=== PATIENT | male | born 1980 | race Caucasian/White ===

== ENCOUNTER → 2017-03-11 | Outpatient (CLI) | payer OTHER ==
[~2017-03-11] MED LIST: AMIT25TA PO; COMBAER6 INH; LOSA100T36 PO; SIMV40TA2 PO; TRAM50TA2 PO; VITA200028 PO
[2017-03-11 11:50] LABS: BASO # 0.1 K/mm3 (0.0-0.2); BASO % 0.7 % (0.0-1.0); EOS # 0.4 K/mm3 (0.0-0.50); EOS % 4.4 % (0.0-3.0); LYMPH # 3.1 K/mm3 (1.5-4.5); LYMPH % 28.2 % (24.0-44.0); MEAN CORPUSCULAR HGB CONC 33.3 g/dl (32.0-36.5); MONO # 0.6 K/mm3 (0.0-0.8); NEUTROPHILS # 6.2 K/mm3 (1.8-7.7); NEUTROPHILS % 59.4 % (36.0-66.0); RED CELL DISTRIBUTION WIDTH 12.7 % (11.5-14.5); WHITE BLOOD COUNT 10.4 K/mm3 (4.0-10.0)
[2017-03-11 12:21] LABS: ALBUMIN 3.5 GM/DL (3.2-5.2); ALKALINE PHOSPHATASE 101 U/L (45-117); ALT/SGPT 40 U/L (12-78); ANION GAP 8 MEQ/L (8-16); AST/SGOT 29 U/L (15-37); BILIRUBIN,TOTAL 0.2 MG/DL (0.2-1.0); BLOOD UREA NITROGEN 7 MG/DL (7-18); CALCIUM LEVEL 8.7 MG/DL (8.5-10.1); CARBON DIOXIDE LEVEL 27 MEQ/L (21-32); CHLORIDE LEVEL 106 MEQ/L (98-107); CHOLESTEROL LEVEL 235 MG/DL (<200); CREATININE FOR GFR 0.77 MG/DL (0.70-1.30); FREE T4 0.97 NG/DL (0.76-1.46); GLOMERULAR FILTRATION RATE > 60.0 (>60); GLUCOSE, FASTING 96 MG/DL (70-105); POTASSIUM SERUM 4.4 MEQ/L (3.5-5.1); SODIUM LEVEL 141 MEQ/L (136-145); TOTAL PROTEIN 7.9 GM/DL (6.4-8.2); TRIGLYCERIDES LEVEL 172 MG/DL (<150)
== END ==
LOC: M LAB 11:21
PROVIDERS: ATTEND Nurse Practitioner Adult Health
DX: E78.00 Pure hypercholesterolemia, unspecified (principal); Z79.899 Other long term (current) drug therapy; E55.9 Vitamin D deficiency, unspecified; R74.8 Abnormal levels of other serum enzymes

== ENCOUNTER → 2017-10-06 | Outpatient (REF) | payer OTHER | LOC: M LAB REF 12:57 | PROVIDERS: ATTEND Nurse Practitioner Family | DX: S41.101A Unspecified open wound of right upper arm, initial encounter (principal); X58.XXXA Exposure to other specified factors, initial encounter; Y93.9 Activity, unspecified; Y92.9 Unspecified place or not applicable; Y99.8 Other external cause status ==

== ENCOUNTER → 2018-12-12 | Outpatient (REF) | payer OTHER ==
[~2018-12-12] MED LIST changes: -LOSA100T36 PO; +LOSA100T50 PO
[2018-12-12 20:21] LABS: ALBUMIN 3.3 GM/DL (3.2-5.2); ALT/SGPT 39 U/L (12-78); BILIRUBIN,TOTAL 0.5 MG/DL (0.2-1.0); BLOOD UREA NITROGEN 8 MG/DL (7-18); CALCIUM LEVEL 8.9 MG/DL (8.5-10.1); CARBON DIOXIDE LEVEL 25 MEQ/L (21-32); CHLORIDE LEVEL 103 MEQ/L (98-107); CHOLESTEROL LEVEL 213 MG/DL (<200); CHOLESTEROL RISK RATIO 7.344 (<5); CREATININE FOR GFR 0.93 MG/DL (0.70-1.30); GLOMERULAR FILTRATION RATE > 60.0 (>60); GLUCOSE, FASTING 92 MG/DL (70-100); HDL CHOLESTEROL 29 MG/DL (>40); LDL CHOLESTEROL 154 MG/DL (<100); NON-HDL-C 184 MG/DL; POTASSIUM SERUM 4.5 MEQ/L (3.5-5.1); SODIUM LEVEL 136 MEQ/L (136-145); TOTAL PROTEIN 7.4 GM/DL (6.4-8.2); TRIGLYCERIDES LEVEL 149 MG/DL (<150)
== END ==
LOC: M LAB REF 18:26
PROVIDERS: ATTEND Family Medicine Addiction Medicine
DX: I10 Essential (primary) hypertension (principal)

== ENCOUNTER → 2019-06-23 | Outpatient (CLI) | payer OTHER ==
[~2019-06-23] MED LIST changes: +PROHANCE 279.3MG/ML 15ML VIAL (A9576) As Ordered ONE; +PROHANCE 279.3MG/ML 5ML VIAL (A9576) As Ordered ONE
--- NOTE | 2019-06-23 15:21 | REP ---
MRI CERVICAL SPINE WITHOUT AND WITH IV CONTRAST: HISTORY: Neck pain. Comparison cervical spine MRI study is from February 10, 2016. There is also a comparison MRI study from May 22, 2014. These prior study showed a elongate abnormal T2 signal intensity in the dorsal aspect of the cervical spinal cord. TECHNIQUE: Sagittal and axial T1 and T2-weighted scans are acquired in the usual fashion with and without fat saturation. Sequences include spin echo, turbo spin-echo, and STIR imaging sequences. The gadolinium enhancement dose is 20 mL of intravenous ProHance. MRI FINDINGS: There is straightening of the normal cervical lordosis. Cortical and medullary bone signal intensity are essentially normal. There are some reactive marrow changes associated with a degenerated C6-7 disc. There are degenerative disc changes at C4-5 and C5-6 as well. There is disc bulging centrally at C6-7 and diffusely at C5-6 and C4-5. There is uncovertebral spurring on the right at C4-5 and C5-6 and to a lesser extent C6-7. On the left there is uncovertebral spurring on the C6-7 and C4-5. These degenerative changes are similar to but slightly more pronounced than the 2014 prior study. Cervical cord is normal in course and caliber. Abnormal signal intensity persists in an elongate lesion in the dorsal cervical cord extending from mid C3 through the lower C-7 level. This appears to be unchanged in extent. It is better seen given differences in MRI instrumentation in the interval since the 2013 prior study. Axial images with T2-weighted demonstrate maximum transverse diameter of this elongate dorsal intramedullary lesion to be 3 x 4 mm. There is no abnormal intramedullary contrast enhancement. No other abnormal contrast enhancement is seen. On STIR and turbo spin echo T2-weighted scans there is a suggestion of ill-defined increased signal intensity in the upper thoracic cord at the level of the T2 vertebral body. Consider thoracic spine MRI study. IMPRESSION: There are degenerative spondylosis changes again noted and C4-5, C5-6 and C6-7 generally more pronounced than on the 2014 study. There is an elongate dorsal intramedullary T2 hyperintense lesion in the spinal cord extending from C3 through C7 as on previous studies. Differential possibilities include sarcoidosis, vasculitis, B12 deficiency, transverse myelitis, or atypical demyelinating disease. No abnormal contrast enhancement is seen. Question upper thoracic intramedullary signal intensity abnormality as well. Consider MRI thoracic spine. Electronically Signed by Christopher Ramirez MD 06/23/2019 03:50 P
== END ==
LOC: M RAD 13:03
PROVIDERS: ATTEND Family Medicine Addiction Medicine
DX: M54.2 Cervicalgia (principal); M47.812 Spondylosis without myelopathy or radiculopathy, cervical region
CPT/HCPCS: 72156; A9576

== ENCOUNTER → 2019-09-11 | Outpatient (REF) | payer OTHER ==
[~2019-09-11] MED LIST changes: -PROHANCE 279.3MG/ML 15ML VIAL (A9576) As Ordered ONE; -PROHANCE 279.3MG/ML 5ML VIAL (A9576) As Ordered ONE
[2019-09-11 16:12] LABS: BASO # 0.1 10^3/uL (0.0-0.2); BASO % 0.5 % (0.0-1.0); EOS # 0.4 10^3/uL (0.0-0.5); EOS % 2.4 % (0.0-3.0); HEMATOCRIT 45.3 % (42.0-52.0); HEMOGLOBIN 15.2 g/dl (13.5-17.5); LYMPH # 3.1 10^3/uL (1.5-5.0); LYMPH % 21.3 % (24.0-44.0); MEAN CORPUSCULAR HEMOGLOBIN 31.9 pg (27.0-33.0); MEAN CORPUSCULAR HGB CONC 33.6 g/dl (32.0-36.5); MONO # 1.4 10^3/uL (0.0-0.8); MONO % 9.6 % (0.0-5.0); NEUTROPHILS # 9.6 10^3/uL (1.5-8.5); NEUTROPHILS % 65.9 % (36.0-66.0); PLATELET COUNT, AUTOMATED 400 10^3/uL (150-450); RED BLOOD COUNT 4.77 10^6/uL (4.30-6.10); WHITE BLOOD COUNT 14.6 10^3/uL (4.0-10.0)
[2019-09-11 16:33] LABS: HEMOGLOBIN A1c 5.8 %
[2019-09-11 17:06] LABS: ALBUMIN 3.4 GM/DL (3.2-5.2); ALT/SGPT 42 U/L (12-78); BILIRUBIN,TOTAL 0.3 MG/DL (0.2-1.0); BLOOD UREA NITROGEN 8 MG/DL (7-18); CALCIUM LEVEL 9.2 MG/DL (8.5-10.1); CARBON DIOXIDE LEVEL 26 MEQ/L (21-32); CHLORIDE LEVEL 103 MEQ/L (98-107); CHOLESTEROL LEVEL 157 MG/DL (<200); CHOLESTEROL RISK RATIO 5.233 (<5); CREATININE FOR GFR 0.91 MG/DL (0.70-1.30); FREE T4 1.07 NG/DL (0.76-1.46); GLOMERULAR FILTRATION RATE > 60.0 (>60); GLUCOSE, FASTING 122 MG/DL (70-100); HDL CHOLESTEROL 30 MG/DL (>40); LDL CHOLESTEROL 107 MG/DL (<100); NON-HDL-C 127 MG/DL; POTASSIUM SERUM 4.5 MEQ/L (3.5-5.1); SODIUM LEVEL 136 MEQ/L (136-145); THYROID STIMULATING HORMONE 0.908 uIU/ML (0.358-3.740); TOTAL 25(OH) VITAMIN D 17.5 NG/ML (30.0-100.0); TOTAL PROTEIN 7.5 GM/DL (6.4-8.2); TRIGLYCERIDES LEVEL 100 MG/DL (<150)
== END ==
LOC: M LAB REF 14:30
PROVIDERS: ATTEND Family Medicine
DX: Z13.228 Encounter for screening for other metabolic disorders (principal)

== ENCOUNTER → 2019-09-21 | Outpatient (CLI) | payer OTHER ==
--- NOTE | 2019-09-21 09:19 | REP ---
Clinical: Abdominal pain. Technique: Real time treviño scale ultrasound examination using curved array transducer. Findings: Liver, spleen, and visualized pancreas are normal in contour, size, echogenicity without focal hepatic, splenic or pancreatic lesion identified. The gallbladder is normal and without gallstones, wall thickening, or pericholecystic fluid. No biliary ductal dilatation is appreciated and the common bile duct measures 5 mm diameter. The bilateral kidneys are normal in reniform shape without hydronephrosis. Right kidney measures 12.8 x 6.3 x 5.4 cm. Left kidney measures 13.1 x 5.0 x 6.0 cm. Abdominal aorta measures 2.0 cm maximal diameter. No ascites. Impression: Normal complete abdominal ultrasound. Electronically Signed by Conner Castellanos MD 09/21/2019 09:11 A
== END ==
LOC: M RAD 08:22
PROVIDERS: ATTEND Family Medicine
DX: R10.9 Unspecified abdominal pain (principal)

== ENCOUNTER → 2019-10-12 | Outpatient (CLI) | payer OTHER ==
--- NOTE | 2019-10-12 09:42 | REP ---
Two-view chest: 10/12/2019. Indication: Cough. Bronchitis. Comparison: 11/21/2005. Findings: The lungs are clear. There is no pleural effusion or pneumothorax. The cardiomediastinal silhouette is unremarkable. Impression: No acute cardiopulmonary process. Electronically Signed by Chetan Yun DO 10/12/2019 09:33 A
--- NOTE | 2019-10-12 12:29 | REP ---
HIDA SCAN WITH GALLBLADDER EJECTION FRACTION: Following the intravenous administration of 6.6 mCi of technetium-99m mebrofenin, images of the right upper quadrant are performed for a period of 1 hour. Gallbladder is visualized at 25 minutes post injection. There is biliary to bowel transit at 10 minutes postinjection. There is no scintigraphic evidence of cholecystitis. At the 1 hour marshal 8 ounces of Ensure Enlive is ingested and further imaging performed for 1 hour. Gallbladder ejection fraction is calculated to be 92% which is normal. IMPRESSION: Normal gallbladder ejection fraction. Electronically Signed by Jamie Hathaway MD 10/12/2019 01:03 P
== END ==
LOC: M RAD 08:44
PROVIDERS: ATTEND Family Medicine
DX: R10.9 Unspecified abdominal pain (principal)
CPT/HCPCS: 71046; 78227; A9537; J2805

== ENCOUNTER → 2019-12-19 | Outpatient (CLI) | payer OTHER ==
[~2019-12-19] MED LIST changes: -SIMV40TA2 PO; +SIMV40TA20 PO
--- NOTE | 2019-12-20 06:08 | REP ---
Clinical: Chronic bronchitis. Technique: Axial noncontrast images from the thoracic inlet to the upper abdomen with coronal and sagittal re-formations. Comparison: None. Findings: The bilateral lung mayes are well-aerated and relatively clear/symmetric. Very subtle peribronchial thickening/bronchiectasis cannot be excluded and should be correlated with symptomatology. No consolidation. No effusion. No pneumothorax. No obvious adenopathy. Mediastinum demonstrates normal thoracic aorta, pulmonary vasculature and heart/pericardium. Atherosclerotic changes to the coronary arteries noted. Osseous structures are intact and normal. Impression: Suggestions for very mild peribronchial thickening / bronchiectasis. Correlation with symptomatology recommended. No acute consolidation or effusion. Electronically Signed by Conner Castellanos MD 12/20/2019 06:00 A
== END ==
LOC: M RAD 17:15
PROVIDERS: ATTEND Family Medicine
DX: J42 Unspecified chronic bronchitis (principal)

== ENCOUNTER 2020-05-20 17:42 | Emergency (ER) | payer MEDICAID, OTHER ==
[~2020-05-20] VITALS: Ht 175.3 cm; Wt 104.8 kg
[2020-05-20] MEDS ORDERED: LOPR1TAB6 PO (17:55)
[2020-05-20] MEDS ORDERED: NS 1,000 ML IV ONE (18:30)
[2020-05-20] MEDS ORDERED: diazePAM 10MG/2ML SYRINGE (J3360 PER 5MG) IV ONE (18:30)
[2020-05-20 19:19] LABS: BASO # 0.1 10^3/uL (0.0-0.2); BASO % 0.6 % (0.0-1.0); EOS # 0.2 10^3/uL (0.0-0.5); EOS % 1.6 % (0.0-3.0); HEMATOCRIT 46.2 % (42.0-52.0); HEMOGLOBIN 15.7 g/dl (13.5-17.5); LYMPH # 3.1 10^3/uL (1.5-5.0); LYMPH % 22.3 % (24.0-44.0); MEAN CORPUSCULAR VOLUME 94.1 fl (80.0-96.0); MONO # 1.2 10^3/uL (0.0-0.8); MONO % 8.3 % (0.0-5.0); NEUTROPHILS # 9.3 10^3/uL (1.5-8.5); NEUTROPHILS % 66.9 % (36.0-66.0); PLATELET COUNT, AUTOMATED 315 10^3/uL (150-450); RED BLOOD COUNT 4.91 10^6/uL (4.30-6.10); WHITE BLOOD COUNT 13.9 10^3/uL (4.0-10.0)
--- NOTE | 2020-05-20 19:22 | REP ---
Clinical: Right-sided chest and back pain . Comparison: 10/12/2019 . Findings: The mediastinum and cardiac silhouette are stable and within normal limits for portable technique. The lung mayes are clear without acute consolidation, effusion, or pneumothorax. Skeletal structures are intact. Impression: No acute cardiopulmonary process appreciated. Electronically Signed by Conner Castellanos MD 05/20/2020 07:14 P
[2020-05-20 19:23] LABS: INR 0.97; PARTIAL THROMBOPLASTIN TIME 27.5 SECONDS (25.0-38.4); PROTHROMBIN TIME 12.6 SECONDS (11.8-14.0)
[2020-05-20 19:26] LABS: D-DIMER QUANT 282.24 ng/ml (<500)
[2020-05-20 19:56] LABS: ALBUMIN 3.7 GM/DL (3.2-5.2); ALT/SGPT 103 U/L (12-78); BILIRUBIN,DIRECT 0.1 MG/DL (0.0-0.2); BILIRUBIN,TOTAL 0.5 MG/DL (0.2-1.0); BLOOD UREA NITROGEN 10 MG/DL (7-18); CALCIUM LEVEL 9.6 MG/DL (8.5-10.1); CARBON DIOXIDE LEVEL 24 MEQ/L (21-32); CHLORIDE LEVEL 103 MEQ/L (98-107); GLOMERULAR FILTRATION RATE > 60.0 (>60); GLUCOSE, FASTING 87 MG/DL (70-100); LIPASE 209 U/L (73-393); POTASSIUM SERUM 4.5 MEQ/L (3.5-5.1); SODIUM LEVEL 135 MEQ/L (136-145); TOTAL PROTEIN 8.1 GM/DL (6.4-8.2)
--- NOTE | 2020-05-20 21:53 | REPVR ---
PROCEDURE INFORMATION: Exam: CT Abdomen And Pelvis Without Contrast Exam date and time: 05/20/2020 9:19 PM Age: 40 years old Clinical indication: Abdominal pain; Flank; Right; Additional info: R flank pain TECHNIQUE: Imaging protocol: Computed tomography of the abdomen and pelvis without contrast. Radiation optimization: All CT scans at this facility use at least one of these dose optimization techniques: automated exposure control; mA and/or kV adjustment per patient size (includes targeted exams where dose is matched to clinical indication); or iterative reconstruction. COMPARISON: CR Pelvis, complete 11/29/2013 2:53 PM FINDINGS: Liver: There is hypodense fatty infiltration of the liver. Hepatomegaly. Gallbladder and bile ducts: No calcified stones. No ductal dilation. Pancreas: A small focus of gas is identified in the region of the pancreatic head and medial to the duodenum. This is suggestive of a duodenal diverticulum or gas within the pancreatic duct. Small calcifications are identified within the the pancreatic tail, which can be associated with chronic pancreatitis. No acute peripancreatic stranding is identified. Spleen: Unremarkable as visualized on these noncontrast images. No splenomegaly. Adrenals: A hypodense right adrenal nodule is visualized measuring 1.8 x 1.2 cm. This has a density of-12.4 HU, suggestive of adrenal adenoma. Kidneys and ureters: Small the nonobstructing renal calculi are identified bilaterally. There is no hydronephrosis bilaterally. No obstructive calculi are identified within the ureters bilaterally. Stomach and bowel: Evaluation of bowel is limited by the absence of oral contrast. No bowel obstruction Appendix: No evidence of appendicitis. Intraperitoneal space: No free air. Vasculature: There is atherosclerotic calcification of the abdominal aorta and iliac arteries. Lymph nodes: No enlarged lymph nodes. Bladder: Mild nonspecific wall thickening of the bladder. Reproductive: Unremarkable as visualized. Bones/joints: Degenerative changes are visualized within the lower thoracic spine. Disc bulging visualized within the lumbar spine. Soft tissues: Minimal herniation of fat into the umbilicus. IMPRESSION: 1. There is fatty infiltration of the liver. Hepatomegaly. 2. A hypodense right adrenal nodule is visualized measuring 1.8 x 1.2 cm, suggestive of adrenal adenoma. 3. Small the nonobstructing renal calculi are identified bilaterally. There is no hydronephrosis bilaterally. No obstructive calculi are identified within the ureters bilaterally. 4. Mild nonspecific wall thickening of the bladder. Correlation with urinalysis recommended. 5. Additional findings described above. Electronically signed by: Bert Seals On 05/20/2020 21:52:56 PM
[2020-05-20 22:23] VITALS: BP 189/106
[2020-05-20] MEDS ORDERED: ROBA750T4 PO (22:41)
[2020-05-20] MEDS ORDERED: FLOM0.4C39 PO (22:41)
== END 2020-05-20 22:52 | disposition home or self-care (01) ==
LOC: M ED 17:42
DX: M51.36 Other intervertebral disc degeneration, lumbar region (principal); N20.0 Calculus of kidney; R16.2 Hepatomegaly with splenomegaly, not elsewhere classified; D35.00 Benign neoplasm of unspecified adrenal gland; M62.830 Muscle spasm of back; R05 Cough; I10 Essential (primary) hypertension; J45.909 Unspecified asthma, uncomplicated; J44.9 Chronic obstructive pulmonary disease, unspecified; F17.210 Nicotine dependence, cigarettes, uncomplicated; Z79.899 Other long term (current) drug therapy
CPT/HCPCS: 36415; 71045; 74176; 80048; 80076; 81001; 83690; 85025; 85379; 85610; 85730; 87088; 87186; 87486; 87581; 87633; 87798; 96361; 96374; 99284; J3360

== ENCOUNTER → 2020-09-13 | Outpatient (REF) | payer OTHER, MEDICAID ==
[~2020-09-13] MED LIST changes: +FLOM0.4C39 PO; +LOPR1TAB6 PO; +ROBA750T4 PO
[2020-09-13 17:02] LABS: ALBUMIN 3.3 GM/DL (3.2-5.2); ALT/SGPT 103 U/L (12-78); BILIRUBIN,TOTAL 0.4 MG/DL (0.2-1.0); BLOOD UREA NITROGEN 7 MG/DL (7-18); CALCIUM LEVEL 8.6 MG/DL (8.5-10.1); CARBON DIOXIDE LEVEL 26 MEQ/L (21-32); CHLORIDE LEVEL 103 MEQ/L (98-107); CHOLESTEROL LEVEL 162 MG/DL (<200); CHOLESTEROL RISK RATIO 3.115 (<5); CREATININE FOR GFR 0.75 MG/DL (0.70-1.30); GLOMERULAR FILTRATION RATE > 60.0 (>60); GLUCOSE, FASTING 94 MG/DL (70-100); HDL CHOLESTEROL 52 MG/DL (>40); LDL CHOLESTEROL 70 MG/DL (<100); NON-HDL-C 110 MG/DL; POTASSIUM SERUM 4.2 MEQ/L (3.5-5.1); SODIUM LEVEL 137 MEQ/L (136-145); THYROID STIMULATING HORMONE 0.823 uIU/ML (0.358-3.740); TOTAL PROTEIN 7.5 GM/DL (6.4-8.2); TRIGLYCERIDES LEVEL 199 MG/DL (<150)
== END ==
LOC: M LAB REF 16:31
PROVIDERS: ATTEND Family Medicine Addiction Medicine
DX: I10 Essential (primary) hypertension (principal)

== ENCOUNTER → 2021-01-21 | Outpatient (CLI) | payer OTHER ==
[~2021-01-21] MED LIST changes: -AMIT25TA PO; +AMIT25TA17 PO; +DOXY100C37 PO; +FLUTISP; +HYDR-3713 PO; +METO1TAB32 PO
--- NOTE | 2021-01-21 16:52 | REPVR ---
PROCEDURE INFORMATION: Exam: CT Maxillofacial Without Contrast Exam date and time: 01/21/2021 4:32 PM Age: 40 years old Clinical indication: Other: Polyp; Additional info: Nasal polyp TECHNIQUE: Imaging protocol: Computed tomography images of the face without contrast. Radiation optimization: All CT scans at this facility use at least one of these dose optimization techniques: automated exposure control; mA and/or kV adjustment per patient size (includes targeted exams where dose is matched to clinical indication); or iterative reconstruction. COMPARISON: No relevant prior studies available. FINDINGS: Orbital cavity: Orbits are normal. Globes are unremarkable. Bones/joints: No acute fracture. Paranasal sinuses: Near complete opacification of frontal and ethmoid sinuses. Moderate mucosal thickening of the maxillary and sphenoid sinuses. Mastoid air cells: Near complete opacification of right mastoid air cells and right middle ear cavity. Soft tissues: Scattered round cystic appearing subdural lesions throughout the bilateral face soft tissues, largest lesion in the right periauricular region measuring 2 cm. IMPRESSION: 1. Near complete opacification of frontal and ethmoid sinuses. Moderate mucosal thickening of the maxillary and sphenoid sinuses. Findings suggestive of acute on chronic sinusitis. Recommend ENT consultation. 2. Near complete opacification of right mastoid air cells and right middle ear cavity. Correlate clinically for signs/symptoms of right otomastoiditis. 3. Scattered round cystic appearing subdural lesions throughout the bilateral face soft tissues, largest lesion in the right periauricular region measuring 2 cm. Recommend dermatology consultation. Electronically signed by: Jhoan Vick On 01/21/2021 16:53:15 PM
== END ==
LOC: M RAD 16:13
PROVIDERS: ATTEND Otolaryngology
DX: J33.9 Nasal polyp, unspecified (principal)

== ENCOUNTER → 2021-02-01 | Outpatient (CLI) | payer OTHER | LOC: M LABSMTC 10:19 | PROVIDERS: ATTEND Anesthesiology | DX: Z01.812 Encounter for preprocedural laboratory examination (principal); Z20.822 Contact with and (suspected) exposure to COVID-19 ==

== ENCOUNTER 2021-02-06 13:15 | Day surgery (SDC) | payer OTHER ==
[~2021-02-06] VITALS: Ht 176.5 cm; Wt 103.0 kg
[~2021-02-06 13:15] MED LIST changes: +LIDOCAINE 1% MDV 20ML VIAL SQ PRN; +LR 1,000 ML IV ONE; +dexameTHASONE 4 MG/ML 1ML VIAL (J1100 PER 1MG) IV ONE
[2021-02-06] MEDS ORDERED: ONDANSETRON 4MG/2ML VIAL As Ordered ONE (15:56)
[2021-02-06] MEDS ORDERED: propofoL 200 MG/20 ML VIAL As Ordered ONE (15:56)
[2021-02-06] MEDS ORDERED: MIDAZOLAM INJ 2MG/2ML VIAL (J2250 PER 1MG) As Ordered ONE (15:56)
[2021-02-06] MEDS ORDERED: METOCLOPRAMIDE INJ 10MG/2ML VIAL (J2765 PER 1) As Ordered ONE (15:56)
[2021-02-06] MEDS ORDERED: LIDOCAINE 2% 100MG/5ML SDV (FOR ANES.) As Ordered ONE (15:56)
[2021-02-06] MEDS ORDERED: fentaNYL 100 MCG/2 ML INJECTION (J3010) As Ordered ONE ×2 (15:57→17:07)
[2021-02-06] MEDS ORDERED: PHENYLEPHRINE 0.5% NASAL SPRAY 15 ML As Ordered ONE (16:00)
[2021-02-06] MEDS ORDERED: CIPRODEX OTIC SUSP 7.5ML As Ordered ONE (16:00)
[2021-02-06 17:20] VITALS: BP 140/88
[2021-02-06] MEDS ORDERED: fentaNYL 100 MCG/2 ML INJECTION (J3010) IV PRN (17:30)
[2021-02-06] MEDS ORDERED: oxyCODONE 5MG TAB PO PRN (17:30)
[2021-02-06] MEDS ORDERED: ONDANSETRON 4MG/2ML VIAL IV PRN (17:30)
[2021-02-06] MEDS ORDERED: LR 1,000 ML IV SCH (17:30)
--- NOTE | 2021-02-11 12:58 | RO ---
OPERATIVE NOTE DATE OF OPERATION: 02/06/2021 PREOPERATIVE DIAGNOSIS: Right serous otitis media. POSTOPERATIVE DIAGNOSIS: Right serous otitis media. PROCEDURE PERFORMED: Right tympanostomy. SURGEON: Oc Cee MD. CAN CONVEYOR FEEDER: ANESTHESIA: General. CLINICAL PREAMBLE: This 40-year-old man presented to the office with a history of right chronic serous otitis media. Resolution was achievable with medical management over three months. Management options, including right tympanostomy, have been discussed. Patient understood and consented to the procedure. DESCRIPTION OF PROCEDURE: Patient was identified in preoperative holding and had the right ear marked. He was brought to the operating room in stable condition. In supine position on the operating table, patient received general anesthesia followed by mask ventilation. Patient head was turned to the left side exposing the right ear. Ear speculum was inserted, and cerumen was debrided under binocular magnification using the Zeiss microscope. The right tympanic membrane was visualized and found to be intact. Effusion was noted in the right middle ear cleft. A myringotomy incision was made over the anterior-inferior quadrant of the tympanic membrane. The right middle ear cleft was then suctioned clear of effusion. A 7 mm straight shank tympanostomy tube was then successfully inserted into the right tympanic membrane. Ciprodex drops were instilled, and cotton ball was inserted to occlude the ear canal. At the end of the procedure, sponge and instrument counts were correct. No complications were encountered. Estimated blood loss was less than 1 mL. General anesthesia was reversed, and the patient was awakened and taken to the recovery room in stable condition.
== END 2021-02-06 17:35 | disposition home or self-care (01) ==
LOC: M SDC 13:15
PROVIDERS: ATTEND Otolaryngology
DX: H65.91 Unspecified nonsuppurative otitis media, right ear (principal); I10 Essential (primary) hypertension; E78.00 Pure hypercholesterolemia, unspecified; F31.9 Bipolar disorder, unspecified; M54.2 Cervicalgia; M54.6 Pain in thoracic spine; J44.9 Chronic obstructive pulmonary disease, unspecified; F17.210 Nicotine dependence, cigarettes, uncomplicated; Z91.018 Allergy to other foods; Z88.8 Allergy status to other drugs, medicaments and biological substances; J30.9 Allergic rhinitis, unspecified; Z79.899 Other long term (current) drug therapy
CPT/HCPCS: 69436; J2250; J2405; J2765; J3010

== ENCOUNTER → 2021-08-20 | Outpatient (CLI) | payer OTHER ==
[~2021-08-20] MED LIST changes: -DOXY100C37 PO; +DOXY1CAP62 PO; +ISOVUE-370 76% 100ML VIAL As Ordered ONE; -LIDOCAINE 1% MDV 20ML VIAL SQ PRN; -LR 1,000 ML IV ONE; -dexameTHASONE 4 MG/ML 1ML VIAL (J1100 PER 1MG) IV ONE
--- NOTE | 2021-08-20 14:41 | REPVR ---
PROCEDURE INFORMATION: Exam: CT Maxillofacial Without Contrast, Sinus Exam date and time: 08/20/2021 1:42 PM Age: 41 years old Clinical indication: Other: Nasal polyps; Additional info: Nasal polyps, mass, lump neck TECHNIQUE: Imaging protocol: CT Maxillofacial without contrast. Focus on the sinuses. Radiation optimization: All CT scans at this facility use at least one of these dose optimization techniques: automated exposure control; mA and/or kV adjustment per patient size (includes targeted exams where dose is matched to clinical indication); or iterative reconstruction. COMPARISON: CT BRAIN LAB SINUSES 01/21/2021 4:36 PM FINDINGS: Frontal sinuses: There is complete opacification of the left frontal sinus. The right frontal sinus is aplastic. Ethmoid air cells: There is complete opacification of the ethmoid air cells. Sphenoid sinuses: There is marked mucosal thickening in the sphenoid sinus, more pronounced on the right. There is near complete opacification of the sphenoid sinus. Maxillary sinuses: There is marked mucosal thickening in the maxillary sinuses. There are no air-fluid levels. There is obstruction of the ostiomeatal units by mucosal thickening. Nasal cavity/Septum: Mild leftward bowing of the nasal septum is present. Orbital cavity: The orbital structures are unremarkable. Bones/joints: A chronic right orbital floor fracture is noted. Soft tissues: Numerous subcutaneous cystic lesions or severe a shows cysts are noted. Mastoid air cells: Minor fluid is present in the right mastoid air cells. Dental: Extensive dental disease is present. IMPRESSION: Pansinusitis Electronically signed by: Bill Pressley On 08/20/2021 14:41:09 PM
--- NOTE | 2021-08-20 14:50 | REPVR ---
PROCEDURE INFORMATION: Exam: CT Neck With Contrast Exam date and time: 08/20/2021 1:42 PM Age: 41 years old Clinical indication: Mass, lump, or swelling in neck; Patient HX: Multiple superficial lumps on face and neck bilaterally; Additional info: Nasal polyps, mass, lump neck TECHNIQUE: Imaging protocol: Computed tomography images of the neck with contrast. Radiation optimization: All CT scans at this facility use at least one of these dose optimization techniques: automated exposure control; mA and/or kV adjustment per patient size (includes targeted exams where dose is matched to clinical indication); or iterative reconstruction. Contrast material: ISOVUE 370; Contrast volume: 75 ml; Contrast route: INTRAVENOUS (IV); COMPARISON: CT BRAIN LAB SINUSES 01/21/2021 4:36 PM FINDINGS: Paranasal sinuses: Pansinusitis is present. Nasopharynx: Unremarkable. Dental: Extensive dental disease is present. Oropharynx: Unremarkable. No significant tonsillar enlargement. Hypopharynx: Unremarkable. Larynx: Unremarkable. Normal epiglottis. Retropharyngeal space: Unremarkable. Submandibular/Parotid glands: Normal. Glands are normal in size. Thyroid: Normal. No enlarged or calcified nodules. Lymph nodes: Unremarkable. No lymphadenopathy. Trachea: Visualized trachea is unremarkable. Lungs: Unremarkable as visualized. Bones/joints: Moderate/severe degenerative changes of the cervical spine are present. There is no severe spinal canal stenosis. Multilevel neural foraminal narrowing from uncinate spurring and facet arthropathy is noted. A chronic right orbital floor fracture is noted. Soft tissues: Multiple subcutaneous cystic lesions are noted within the face, probably representing sebaceous cysts. IMPRESSION: 1. Pansinusitis. 2. Multiple subcutaneous cystic lesions are noted within the face, probably representing sebaceous cysts. Electronically signed by: Bill Pressley On 08/20/2021 14:50:10 PM
== END ==
LOC: M RAD 12:18
PROVIDERS: ATTEND Otolaryngology
DX: R93.89 Abnormal findings on diagnostic imaging of other specified body structures (principal); J01.40 Acute pansinusitis, unspecified; J33.9 Nasal polyp, unspecified; R22.1 Localized swelling, mass and lump, neck
CPT/HCPCS: 70486; 70491; Q9967

== ENCOUNTER → 2021-09-18 | Outpatient (CLI) | payer OTHER ==
[~2021-09-18] MED LIST changes: +DOXY-443 PO; -DOXY1CAP62 PO; -ISOVUE-370 76% 100ML VIAL As Ordered ONE
== END ==
LOC: M LABSMTC 10:51
PROVIDERS: ATTEND Anesthesiology
DX: Z01.818 Encounter for other preprocedural examination (principal); Z11.52 Encounter for screening for COVID-19

== ENCOUNTER 2021-09-23 05:59 | Day surgery (SDC) | payer OTHER ==
[~2021-09-23] VITALS: Ht 175.3 cm; Wt 105.3 kg
[~2021-09-23 05:59] MED LIST changes: +CETI-24 PO
--- OUTSIDE RECORDS SUMMARY | 2021-09-23 06:03 | CCD | Continuity of Care Document ---
Author Author RAMON LANGLEY, Tab GONZALEZ [facility] Organization Unknown Address [address] [place] [id number] Phone [phone] Care Team Providers Care Photographic Printer Name Role Phone Felice Izquierdo M.D. AUTM [phone] Central Scheduling AUTM [phone] Problems Active Problems Provider Date Essential hypertension Oc Cee MD Onset: 01/02/2021 Social History Type Date Description Comments Sex Unknown ETOH Use 12 a week Tobacco Use Start: Unknown Patient is a current smoker, smo kes every day 1 1/2 ppd Recreational Drug Use Denies Drug Use Allergies and adverse reactions Active Allergies Criticality Reaction | Severity Comments Date Naproxen Unable to assess criticality 01/02/2021 Medications Active Medications SIG Qnty Indications Ordering Provide r Date Cetirizine HCL 10mg Tablets Take One Tablet By Mouth Once Daily as Needed For allergies 90tabs J31.0 Oc Cee MD 06/17/2021 Doxycycline Hyclate 100mg Capsules 100 mg by mouth twice a day 14 days 28caps J32.4 Oc Cee MD 08/2021 Fluticasone Propionate 50mcg/Act Suspension 2 sprays to each nostril daily 48gm J32.0 Oc montaño MD 01/02/2021 Saline Nasal [place] 0.65% Solution 2 sprays to each nostril 2-3 times a day and as needed 264ml J32.0 To lillie Cee MD 01/02/2021 Doxycycline Hyclate 100mg Tablets DR take one tablet by mouth every 12 hours for 10 days 20tabs J32.0 T ashlee Cee MD 01/02/2021 Losartan Potassium 100mg Tablets Felice Izquierdo M.D. Metoprolol Succinate ER 25mg Tablets ER 24HR Felice Izquierdo M.D. 0 Simvastatin 40mg Tablets Felice Izquierdo M.D. Immunizations Description No Information Available Vital Signs Date Vital Result Comment 09/05/2021 1:03pm Height 69 inches 5'9" Weight 229.00 lb BMI (Body Mass Index) 33.8 kg/m2 [place] Body Weight 160 lb Weight 103.874 kg BSA (Body Surface Area) 2.19 m2 08/01/2021 2:07pm Height 69 inches 5'9" Weight 229.00 lb BMI (Body Mass Index) 33.8 kg/m2 [place] Body Weight 160 lb Weight 103.874 kg BSA (Body Surface Area) 2.19 m2 Results Description No Information Available Procedures Date Code Description Status 08/01/2021 86597 Office/Outpatient Established Mo d MDM 30-39 Min Completed 03/31/2021 18364 Office/Outpatient Established Mo d MDM 30-39 Min Completed Medical Devices Description No Information Available Encounters Type Date Location Provider Dx Diagnosis Office Visit 08/01/2021 1:30p [facility] Oc Cee MD H69.90 Unspecified Eustachian tube disorder, unspecified ear J34.2 Deviated nasal septum J33.9 Nasal polyp, unspecified R22.1 Localized swelling, mass and lump, neck Office Visit 03/31/2021 3:30p [facility] Oc Cee MD Z96.22 Myringotomy tube(s) status H72.01 Central perforation of tympa rony membrane, right ear J32.4 Chronic pansinusitis J33.9 Nasal polyp, unspecified R43.8 Other disturbances of smell and taste L03.211 Cellulitis of face Assessments Date Code Description Provider 09/05/2021 J33.9 Nasal polyp, unspecified Oc treviño MD 09/05/2021 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 Oc Cee MD 09/05/2021 H69.90 Unspecified Eustachian tube diso rder, unspecified ear Oc Cee MD 08/01/2021 H69.90 Unspecified Eustachian tube diso rder, unspecified ear Oc Cee MD 08/01/2021 J34.2 Deviated nasal septum Oc montaño MD 08/01/2021 J33.9 Nasal polyp, unspecified Oc treviño MD 08/01/2021 R22.1 Localized swelling, mass and lum p, neck Oc Cee MD 03/31/2021 Z96.22 Myringotomy tube(s) status Oc Cee MD 03/31/2021 H72.01 Central perforation of tympanic membrane, right ear Oc Cee MD 03/31/2021 J32.4 Chronic pansinusitis Oc Cee MD 03/31/2021 J33.9 Nasal polyp, unspecified Oc treviño MD 03/31/2021 R43.8 Other disturbances of smell and taste Oc eCe MD 03/31/2021 L03.211 Cellulitis of face Oc Cee MD Plan of Treatment Future Appointment(s):* 09/30/2021 1:00 pm - Tyrel Pavon II, PA-C at [facility] * 09/23/2021 7:30 am - Oc Cee MD at [facility] 09/05/2021 - Oc Cee MD* J33.9 Nasal polyp, unspecified * 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
--- OUTSIDE RECORDS SUMMARY | 2021-09-23 06:03 | CCD | Continuity of Care Document ---
Author Author RAMON LANGLEY, Tab GONZALEZ [facility] Organization Unknown Address [address] [place] [id number] Phone [phone] Care Team Providers Care Product Development Specialist Name Role Phone Felice Izquierdo M.D. AUTM [phone] Central Scheduling AUTM [phone] Problems Active Problems Provider Date Essential hypertension [...] J32.0 Oc montaño MD 01/02/2021 Saline Nasal [place] 0.65% Solution 2 sprays to each nostril [...] lb BMI (Body Mass Index) 33.8 kg/m2 [place] Body Weight 160 lb Weight 103.874 kg BSA (Body Surface Area) 2.19 m2 08/01/2021 2:07pm Height 69 inches 5'9" Weight 229.00 lb BMI (Body Mass Index) 33.8 kg/m2 [place] Body Weight 160 lb Weight 103.874 kg BSA (Body Surface Area) 2.19 m2 Results Description No Information Available Procedures Date Code Description Status 03/31/2021 16510 Office/Outpatient Established Mo d MDM 30-39 Min Completed Medical Devices Description No Information Available Encounters Type Date Location Provider Dx Diagnosis Office Visit 03/31/2021 3:30p [facility] Oc Cee MD Z96.22 Myringotomy [...] Other disturbances of smell and taste Oc Cee MD 03/31/2021 L03.211 Cellulitis of face Oc Cee MD Plan of Treatment Future Appointment(s):* 09/23/2021 8:00 am - Oc Cee MD at [facility] 09/05/2021 - Oc Cee MD* J33.9 Nasal polyp, unspecified * 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
--- OUTSIDE RECORDS SUMMARY | 2021-09-23 06:03 | CCD | Continuity of Care Document ---
Author Author RAMON LANGLEY, Tab [facility] Organization Unknown Address [address] [facility] [address] [place] [address] Phone [phone] Care Team Providers Care Office Manager Executive Assistant Name Role Phone Felice Izquierdo M.D. AUTM [phone] Central Scheduling AUTM [phone] Problems Active Problems Provider Date Essential hypertension Oc Cee MD Onset: 01/02/2021 Social History Type Date Description Comments Sex Unknown ETOH Use 12 a week Tobacco Use Start: Unknown Patient is a current smoker, smo kes every day 1 1/2 ppd Recreational Drug Use Denies Drug Use Allergies, Adverse Reactions, Alerts Active Allergies Criticality Reaction | Severity Comments [...] J32.0 Oc montaño MD 01/02/2021 Saline Nasal [place] 0.65% Solution 2 sprays to each nostril [...] 0 Simvastatin 40mg Tablets Felice Izquierdo M.D. History Medications Zyrtec Allergy 10mg Tablets take on by mouth every day as needed seasonal allergies 90tabs J31.0 Bandar Cee MD 02/13/2021 - 06/17/2021 Immunizations Description No Information Available Vital Signs Date Vital Result Comment 08/01/2021 2:07pm Height 69 inches 5'9" Weight 229.00 lb BMI (Body Mass Index) 33.8 kg/m2 [place] Body Weight 160 lb Weight 103.874 kg BSA (Body Surface Area) 2.19 m2 03/31/2021 3:41pm Height 69 inches 5'9" Weight 226.00 lb BMI (Body Mass Index) 33.4 kg/m2 [place] Body Weight 160 lb Weight 102.514 kg BSA (Body Surface Area) 2.18 m2 Results Description No Information Available Procedures Date Code Description Status 03/31/2021 98541 Office/Outpatient Established Mo d MDM 30-39 Min Completed 02/13/2021 47038 Office/Outpatient Established Mo d MDM 30-39 Min Completed 02/06/2021 99408 Tympanostomy, General Anesthesia Completed Medical Devices Description No Information Available Encounters Type Date Location Provider Dx Diagnosis Office Visit 03/31/2021 3:30p [facility] Oc Cee MD Z96.22 Myringotomy tube(s) status H72.01 Central perforation of tympa rony membrane, right ear J32.4 Chronic pansinusitis J33.9 Nasal polyp, unspecified R43.8 Other disturbances of smell and taste L03.211 Cellulitis of face Office Visit 02/13/2021 2:00p [facility] Tyrel Pavon II, PA-C Z96.22 Myringotomy tube(s) status H72.01 Central perforation of tympa rony membrane, right ear J32.4 Chronic pansinusitis J33.9 Nasal polyp, unspecified J31.0 Chronic rhinitis Z72.0 Tobacco use Assessments Date Code Description Provider 08/01/2021 H69.90 Unspecified Eustachian tube diso rder, unspecified ear Oc Cee MD 08/01/2021 J34.2 Deviated nasal septum Oc montaño MD 08/01/2021 J33.9 Nasal polyp, unspecified Oc treviño MD 08/01/2021 R22.1 Localized swelling, mass and lum p, neck Oc Cee MD 03/31/2021 Z96.22 Myringotomy tube(s) status Oc Cee MD 03/31/2021 H72.01 Central perforation of tympanic membrane, right ear cO Cee MD 03/31/2021 J32.4 Chronic pansinusitis Oc Cee MD 03/31/2021 J33.9 Nasal polyp, unspecified Oc treviño MD 03/31/2021 R43.8 Other disturbances of smell and taste Oc Cee MD 03/31/2021 L03.211 Cellulitis of face Oc Cee MD 02/13/2021 Z96.22 Myringotomy tube(s) status Frances Pavon II, PA-C 02/13/2021 H72.01 Central perforation of tympanic membrane, right ear Tyrel Pavon II, PA-C 02/13/2021 J32.4 Chronic pansinusitis Tyrel castillo II, PA-C 02/13/2021 J33.9 Nasal polyp, unspecified Tyrel Pavon II, PA-C 02/13/2021 J31.0 Chronic rhinitis Tyrel Pavon II , PA-C 02/13/2021 Z72.0 Tobacco use Tyrel Pavon II, PA-C 02/06/2021 H65.01 Acute serous otitis media, right ear Oc Cee MD Plan of Treatment Future Appointment(s):* 09/01/2021 1:30 pm - Oc Cee MD at [facility] 08/01/2021 - Oc Cee MD* H69.90 Unspecified Eustachian tube disorder, unspecified ear * J34.2 Deviated nasal septum * J33.9 Nasal polyp, unspecified* New Xrays:* CT Maxillofacial With Brain Lab W/O Contrast, Ordered: 08/01/21 * R22.1 Localized swelling, mass and lump, neck* New Xrays:* CT Neck Soft Tissue W Contrast, Ordered: 08/01/21 Functional Status Description No Information Available Mental Status Description No Information Available Referrals Refer to Reason for Referral Status Appt Oc Cee MD RECHECK CHRONIC RHINITIS Scheduled 03/31/2021 [address] [facility] [address] [place] [address] [phone]
--- OUTSIDE RECORDS SUMMARY | 2021-09-23 06:03 | CCD | Continuity of Care Document ---
Author Author RAMON LANGLEY, Tab [facility] Organization Unknown Address [address] [place] [address] Phone [phone] Care Team Providers Care Diesel Truck Crane Operator Name Role Phone Felice Izquierdo M.D. AUTM [phone] Central Scheduling AUTM [phone] Problems Active Problems Provider Date Essential hypertension [...] J32.0 Oc montaño MD 01/02/2021 Saline Nasal [place] 0.65% Solution 2 sprays to each nostril [...] lb BMI (Body Mass Index) 33.8 kg/m2 [place] Body Weight 160 lb Weight 103.874 kg BSA (Body Surface Area) 2.19 m2 08/01/2021 2:07pm Height 69 inches 5'9" Weight 229.00 lb BMI (Body Mass Index) 33.8 kg/m2 [place] Body Weight 160 lb Weight 103.874 kg BSA (Body Surface Area) 2.19 m2 Results Description No Information Available Procedures Date Code Description Status 03/31/2021 01982 Office/Outpatient Established Mo d MDM 30-39 Min Completed Medical Devices Description No Information Available Encounters Type Date Location Provider Dx Diagnosis Office Visit 03/31/2021 3:30p [facility] Oc Cee MD Z96.22 [...] 8:00 am - Oc Cee MD at [facility] 09/05/2021 - Oc Cee MD* J33.9 Nasal polyp, unspecified * 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
--- OUTSIDE RECORDS SUMMARY | 2021-09-23 06:03 | CCD | Continuity of Care Document ---
Author Author ARMON LANGLEY, Tab GONZALEZ [facility] Organization Unknown Address [address] [place] [address] Phone [phone] Care Team Providers Care Washer Engineer Name Role Phone Felice Izquierdo M.D. AUTM [phone] Central Scheduling AUTM [phone] Problems Active Problems Provider Date Essential hypertension [...] J32.0 Oc montaño MD 01/02/2021 Saline Nasal [place] 0.65% Solution 2 sprays to each nostril [...] lb BMI (Body Mass Index) 33.8 kg/m2 [place] Body Weight 160 lb Weight 103.874 kg BSA (Body Surface Area) 2.19 m2 08/01/2021 2:07pm Height 69 inches 5'9" Weight 229.00 lb BMI (Body Mass Index) 33.8 kg/m2 [place] Body Weight 160 lb Weight 103.874 kg BSA (Body Surface Area) 2.19 m2 Results Description No Information Available Procedures Date Code Description Status 03/31/2021 93729 Office/Outpatient Established Mo d MDM 30-39 Min Completed Medical Devices Description No Information Available Encounters Type Date Location Provider Dx Diagnosis Office Visit 03/31/2021 3:30p [facility] Oc Cee MD [...] 8:00 am - Oc Cee MD at 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
--- OUTSIDE RECORDS SUMMARY | 2021-09-23 06:03 | CCD | Continuity of Care Document ---
Author Author RAMON LANGLEY, Tab GONZALEZ [facility] Organization Unknown Address [address] [facility] [address] [place] [address] Phone [phone] Care Team Providers Care Pharmacy Operations Specialist Name Role Phone Felice Izquierdo M.D. AUTM [phone] Central Scheduling AUTM [phone] Problems Active Problems Provider Date Essential hypertension [...] J32.0 Oc montaño MD 01/02/2021 Saline Nasal [place] 0.65% Solution 2 sprays to each nostril [...] lb BMI (Body Mass Index) 33.8 kg/m2 [place] Body Weight 160 lb Weight 103.874 kg BSA (Body Surface Area) 2.19 m2 03/31/2021 3:41pm Height 69 inches 5'9" Weight 226.00 lb BMI (Body Mass Index) 33.4 kg/m2 [place] Body Weight 160 lb Weight 102.514 kg BSA (Body Surface Area) 2.18 m2 Results Description No Information Available Procedures Date Code Description Status 03/31/2021 11528 Office/Outpatient Established Mo d MDM 30-39 Min Completed 02/13/2021 06274 Office/Outpatient Established Mo d MDM 30-39 Min Completed 02/06/2021 35107 Tympanostomy, General Anesthesia Completed Medical Devices Description No Information Available Encounters Type Date Location Provider Dx Diagnosis Office Visit 03/31/2021 3:30p [facility] Oc Cee MD Z96.22 Myringotomy tube(s) status H72.01 Central perforation of tympa rony membrane, right ear J32.4 Chronic pansinusitis J33.9 Nasal polyp, unspecified R43.8 Other disturbances of smell and taste L03.211 Cellulitis of face Office Visit 02/13/2021 2:00p [facility] Tyrel Pavon II, PA-C Z96.22 [...] 1:30 pm - Oc Cee MD at [facility] 08/01/2021 - Oc Cee MD* [...] MD RECHECK CHRONIC RHINITIS Scheduled 03/31/2021 [address] [facility] [address] [place] [address] [phone]
--- OUTSIDE RECORDS SUMMARY | 2021-09-23 06:04 | CCD ---
Author Author [facility] Organization [facility] Address Unknown Phone Unavailable Care Team Providers Care Golf Teacher Name Role Phone Gus Izquierdo MD Unavailable Unavailable Gus Izquierdo MD Unavailable Unavailable Gus Izquierdo MD Unavailable Unavailable Gus Izquierdo MD Unavailable Unavailable Gus Izquierdo MD Unavailable Unavailable Gus Izquierdo MD Unavailable Unavailable Gus Izquierdo MD Unavailable Unavailable Gus Izquierdo MD Unavailable Unavailable Gus Izquierdo MD Unavailable Unavailable Gus Izquierdo MD Unavailable Unavailable Gus Izquierdo MD Unavailable Unavailable Gus Izquierdo MD Unavailable Unavailable Gus Izquierdo MD Unavailable Unavailable Gus Izquierdo MD Unavailable Unavailable Gus Izquierdo MD Unavailable Unavailable Gus Izquierdo MD Unavailable Unavailable Gus Izquierdo MD Unavailable Unavailable Gus Izquierdo MD Unavailable Unavailable Gus Izquierdo MD Unavailable Unavailable Gus Izquierdo MD Unavailable Unavailable Gus Izquierdo MD Unavailable Unavailable Gus Izquierdo MD Unavailable Unavailable Gus Izquierdo MD Unavailable Unavailable Gus Izquierdo MD Unavailable Unavailable Gus Izquierdo MD Unavailable Unavailable Gus Izquierdo MD Unavailable Unavailable Gus Izquierdo MD Unavailable Unavailable Gus Izquierdo MD Unavailable Unavailable Gus Izquierdo MD Unavailable Unavailable Gus Izquierdo MD Unavailable Unavailable Gus Izquierdo MD Unavailable Unavailable Gus Izquierdo MD Unavailable Unavailable Gus Izquierdo MD Unavailable Unavailable Gus Izquierdo MD Unavailable Unavailable Gus Izquierdo MD Unavailable Unavailable Gus Izquierdo MD Unavailable Unavailable Gus Izquierdo MD Unavailable Unavailable Gus Izquierdo MD Unavailable Unavailable Gus Izquierdo MD Unavailable Unavailable Gus Izquierdo MD Unavailable Unavailable Gus Izquierdo MD Unavailable Unavailable Gus Izquierdo MD Unavailable Unavailable Gus Izquierdo MD Unavailable Unavailable Gus Izquierdo MD Unavailable Unavailable Gus Izquierdo MD Unavailable Unavailable Gus Izquierdo MD Unavailable Unavailable Gus Izquierdo MD Unavailable Unavailable Gus Izquierdo MD Unavailable Unavailable Gus Izquierdo MD Unavailable Unavailable Gus Izquierdo MD Unavailable Unavailable Gus Izquierdo MD Unavailable Unavailable Gus Izquierdo MD Unavailable Unavailable Gus Izquierdo MD Unavailable Unavailable Gus Izquierdo MD Unavailable Unavailable Gus Izquierdo MD Unavailable Unavailable Gus Izquierdo MD Unavailable Unavailable Gus Izquierdo MD Unavailable Unavailable Gus Izquierdo MD Unavailable Unavailable Gus Izquierdo MD Unavailable Unavailable Gus Izquierdo MD Unavailable Unavailable Gus Izquierdo MD Unavailable Unavailable Gus Izquierdo MD Unavailable Unavailable Gus Izquierdo MD Unavailable Unavailable Gus Izquierdo MD Unavailable Unavailable Gus Izquierdo MD Unavailable Unavailable Gus Izquierdo MD Unavailable Unavailable Gus Izquierdo MD Unavailable Unavailable Gus Izquierdo MD Unavailable Unavailable Gus Izquierdo MD Unavailable Unavailable Gus Izquierdo MD Unavailable Unavailable Gus Izquierdo MD Unavailable Unavailable Gus Izquierdo MD Unavailable Unavailable Gus Izquierdo MD Unavailable Unavailable Gus Izquierdo MD Unavailable Unavailable Gus Izquierdo MD Unavailable Unavailable Gus Izquierdo MD Unavailable Unavailable Gus Izquierdo MD Unavailable Unavailable Gus Izquierdo MD Unavailable Unavailable Gus Izquierdo MD Unavailable Unavailable Gus Izquierdo MD Unavailable Unavailable Gus Izquierdo MD Unavailable Unavailable Gus Izquierdo MD Unavailable Unavailable Gus Izquierdo MD Unavailable Unavailable Gus Izquierdo MD Unavailable Unavailable Gus Izquierdo MD Unavailable Unavailable Gus Izquierdo MD Unavailable Unavailable Gus Izquierdo MD Unavailable Unavailable Gus Izquierdo MD Unavailable Unavailable Gus Izquierdo MD Unavailable Unavailable Gus Izquierdo MD Unavailable Unavailable Gus Izquierdo MD Unavailable Unavailable Gus Izquierdo MD Unavailable Unavailable Gus Izquierdo MD Unavailable Unavailable Gus Izquierdo MD Unavailable Unavailable Gus Izquierdo MD Unavailable Unavailable Gus Izquierdo MD Unavailable Unavailable Gus Izquiredo MD Unavailable Unavailable Gus Izquierdo MD Unavailable Unavailable Gus Izquierdo MD Unavailable Unavailable Gus Izquierdo MD Unavailable Unavailable Gus Izquierdo MD Unavailable Unavailable Gus Izquierdo MD Unavailable Unavailable Gus Izquierdo MD Unavailable Unavailable Gus Izquierdo MD Unavailable Unavailable Gus Izquierdo MD Unavailable Unavailable Gus Izquierdo MD Unavailable Unavailable Gus Izquierdo MD Unavailable Unavailable Gus Izquierdo MD Unavailable Unavailable Gus Izquierdo MD Unavailable Unavailable Gus Izquierdo MD Unavailable Unavailable Gus Izquierdo MD Unavailable Unavailable Gus Izquierdo MD Unavailable Unavailable Gus Izquierdo MD Unavailable Unavailable Gus Izquierdo MD Unavailable Unavailable Gus Izquierdo MD Unavailable Unavailable Gus Izquierdo MD Unavailable Unavailable Gus Izquierdo MD Unavailable Unavailable Gus Izquierdo MD Unavailable Unavailable Gus Izquierdo MD Unavailable Unavailable Gus Izquierdo MD Unavailable Unavailable Gus Izquierdo MD Unavailable Unavailable Gus Izquierdo MD Unavailable Unavailable Gus Izquierdo MD Unavailable Unavailable Gus Izquierdo MD Unavailable Unavailable Gus Izquierdo MD Unavailable Unavailable Gus Izquierdo MD Unavailable Unavailable Gus Izquierdo MD Unavailable Unavailable Gus Izquierdo MD Unavailable Unavailable Gus Izquierdo MD Unavailable Unavailable Gus Izquierdo MD Unavailable Unavailable Gus Izquierdo MD Unavailable Unavailable Gus Izquierdo MD Unavailable Unavailable Gus Izquierdo MD Unavailable Unavailable Gus Izquierdo MD Unavailable Unavailable Gus Izquierdo MD Unavailable Unavailable Gus Izquierdo MD Unavailable Unavailable Gus Izquierdo MD Unavailable Unavailable Gus Izquierdo MD Unavailable Unavailable Gus Izquierdo MD Unavailable Unavailable Gus Izquierdo MD Unavailable Unavailable Gus Izquierdo MD Unavailable Unavailable Gus Izquierdo MD Unavailable Unavailable Gus Izquierdo MD Unavailable Unavailable Gus Izquierdo MD Unavailable Unavailable Gus Izquierdo MD Unavailable Unavailable Gus Izquierdo MD Unavailable Unavailable Gus Izquierdo MD Unavailable Unavailable Gus Izquierdo MD Unavailable Unavailable Gus Izquierdo MD Unavailable Unavailable Gus Izquierdo MD Unavailable Unavailable Gus Izquierdo MD Unavailable Unavailable Gus Izquierdo MD Unavailable Unavailable Gus Izquierdo MD Unavailable Unavailable Gus Izquierdo MD Unavailable Unavailable Gus Izquierdo MD Unavailable Unavailable Gus Izquierdo MD Unavailable Unavailable Gus Izqiuerdo MD Unavailable Unavailable Gus Izquierdo MD Unavailable Unavailable Gus Izquierdo MD Unavailable Unavailable Gus Izquierdo MD Unavailable Unavailable Gus Izquierdo MD Unavailable Unavailable Gus Izquierdo MD Unavailable Unavailable Gus Izquierdo MD Unavailable Unavailable Gus Izquierdo MD Unavailable Unavailable Gus Izquierdo MD Unavailable Unavailable Gus Izquierdo MD Unavailable Unavailable Gus Izquierdo MD Unavailable Unavailable Gus Izquierdo MD Unavailable Unavailable Gus Izquierdo MD Unavailable Unavailable Gus Izquierdo MD Unavailable Unavailable Gus Izquierdo MD Unavailable Unavailable Gus Izquierdo MD Unavailable Unavailable Gus Izquierdo MD Unavailable Unavailable Gus Izquierdo MD Unavailable Unavailable Gus Izquierdo MD Unavailable Unavailable Gus Izquierdo MD Unavailable Unavailable Gus Izquierdo MD Unavailable Unavailable Gus Izquierdo MD Unavailable Unavailable Gus Izquierdo MD Unavailable Unavailable Gus Izquierdo MD Unavailable Unavailable Gus Izquierdo MD Unavailable Unavailable Gus Izquierdo MD Unavailable Unavailable Gus Izquierdo MD Unavailable Unavailable Gus Izquierdo MD Unavailable Unavailable Gsu Izquierdo MD Unavailable Unavailable Gus Izquierdo MD Unavailable Unavailable Brock CEE MD Unavailable Unavailable Brock CEE MD Unavailable Unavailable Brock CEE MD Unavailable Unavailable Brock CEE MD Unavailable Unavailable Brock CEE MD Unavailable Unavailable Brock CEE MD Unavailable Unavailable Brock CEE MD Unavailable Unavailable Brock CEE MD Unavailable Unavailable Brock CEE MD Unavailable Unavailable Brock CEE MD Unavailable Unavailable Brock CEE MD Unavailable Unavailable Brock CEE MD Unavailable Unavailable Brock CEE MD Unavailable Unavailable Brock CEE MD Unavailable Unavailable Brock CEE MD Unavailable Unavailable Brock CEE MD Unavailable Unavailable Brock CEE MD Unavailable Unavailable Brock CEE MD Unavailable Unavailable Brock CEE MD Unavailable Unavailable Brock CEE MD Unavailable Unavailable Brock CEE MD Unavailable Unavailable Brock CEE MD Unavailable Unavailable Brock CEE MD Unavailable Unavailable Brock CEE MD Unavailable Unavailable Brock CEE MD Unavailable Unavailable Brock CEE MD Unavailable Unavailable Brock CEE MD Unavailable Unavailable Brock CEE MD Unavailable Unavailable Brock CEE MD Unavailable Unavailable Brock CEE MD Unavailable Unavailable Brock CEE MD Unavailable Unavailable Brock CEE MD Unavailable Unavailable Brock CEE MD Unavailable Unavailable Brock CEE MD Unavailable Unavailable Librado II, Tyrel PA Unavailable Unavailable Librado II, Tyrel PA Unavailable Unavailable Librado II, Tyrel PA Unavailable Unavailable Librado II, Tyrel PA Unavailable Unavailable Librado II, Tyrel PA Unavailable Unavailable Librado II, Tyrel PA Unavailable Unavailable Librado II, Tyrel PA Unavailable Unavailable Librado II, Tyrel PA Unavailable Unavailable Librado II, Tyrel PA Unavailable Unavailable Librado II, Tyrel PA Unavailable Unavailable Librado II, Tyrel PA Unavailable Unavailable Librado II, Tyrel PA Unavailable Unavailable Librado II, Tyrel PA Unavailable Unavailable Librado II, Tyrel PA Unavailable Unavailable Librado II, Tyrel PA Unavailable Unavailable Librado II, Tyrel PA Unavailable Unavailable Librado II, Tyrel PA Unavailable Unavailable Librado II, Tyrel PA Unavailable Unavailable Librado II, Tyrel PA Unavailable Unavailable Re-disclosure Warning The records that you are about to access may contain information from federally-assisted alcohol or drug abuse programs. If such information is present, then the following federally mandated warning applies: This information has been disclosed to you from records protected by federal confidentiality rules (42 CFR part 2). The federal rules prohibit you from making any further disclosure of this information unless further disclosure is expressly permitted by the written consent of the person to whom it pertains or as otherwise permitted by 42 CFR part 2. A general authorization for the release of medical or other information is NOT sufficient for this purpose. The Federal rules restrict any use of the information to criminally investigate or prosecute any alcohol or drug abuse patient.The records that you are about to access may contain highly sensitive health information, the redisclosure of which is protected by Article 27-F of the [facility] Public Health law. If you continue you may have access to information: Regarding HIV / AIDS; Provided by facilities licensed or operated by the [facility] Office of Mental Health; or Provided by the [facility] Office for People With Developmental Disabilities. If such information is present, then the following [facility] mandated warning applies: This information has been disclosed to you from confidential records which are protected by state law. State law prohibits you from making any further disclosure of this information without the specific written consent of the person to whom it pertains, or as otherwise permitted by law. Any unauthorized further disclosure in violation of state law may result in a fine or mcc sentence or both. A general authorization for the release of medical or other information is NOT sufficient authorization for further disc losure. Allergies and Adverse Reactions Type Description Substance Reaction Status Data Source(s ) Allergy to substance Allergy to substance Naprosyn [facility] ([facility]) Allergy to substance Allergy to substance Naprosyn [facility] ([facility]) Allergy to substance Allergy to substance Naprosyn [facility] ([facility]) Allergy to substance Allergy to substance Naprosyn [facility] ([facility]) Encounters Encounter Providers Location Date Indications Data Source(s ) Outpatient Attender: LISA Cee/Shant/Henrique/Kin rubalcava 08/01/2021 01:30:00 PM EDT [facility] ([facility] Felice Izquierdo MD: [address] [place] [address], Ph. Attender: Felice Izquierdo MD [facility] Medical 06/02/2021 12:00:00 AM EDT [facility] ([facility]) Felice Izquierdo MD: [address] [place] [address], Ph. Attender: Felice Izquierdo MD [facility] Medical 05/16/2021 12:00:00 AM EDT [facility] ([facility]) Felice Izquierdo MD: [address] [place] [address], Ph. Attender: Felice Izquierdo MD [facility] Medical 05/16/2021 12:00:00 AM EDT [facility] ([facility]) Felice Izquierdo MD: [address] [place] [address], Ph. Attender: Felice Izquierdo MD [facility] Medical 04/16/2021 12:00:00 AM EDT [facility] ([facility]) Felice Izquierdo MD: [address] [place] [address], Ph. Attender: Felice Izquierdo MD [facility] Medical 04/16/2021 12:00:00 AM EDT [facility] ([facility]) Felice Izquierdo MD: [address] [place] [address], Ph. Attender: Felice Izquierdo MD [facility] Medical 04/16/2021 12:00:00 AM EDT [facility] ([facility]) Outpatient Attender: LISA Cee/Shant/Henrique/Reind l 03/31/2021 03:30:00 PM EDT [facility] ([facility] Felice Izquierdo MD: [address] [place] [address], Ph. Attender: Felice Izquierdo MD [facility] Medical 03/13/2021 12:00:00 AM EDT [facility] ([facility]) Felice Izquierdo MD: [address] [place] [address], Ph. Attender: Felice Izquierdo MD [facility] Medical 03/13/2021 12:00:00 AM EDT [facility] ([facility]) Felice Izquierdo MD: [address] [place] [address], Ph. Attender: Felice Izquierdo MD [facility] Medical 03/13/2021 12:00:00 AM EDT [facility] ([facility]) Felice Izquierdo MD: [address] [place] [address], Ph. Attender: Felice Izquierdo MD [facility] Medical 03/13/2021 12:00:00 AM EDT [facility] ([facility]) Outpatient Attender: Tyrel Cee/Shant/Henrique/Rein dl 02/13/2021 02:00:00 PM EDT [facility] ([facility]) Outpatient Attender: LISA Cee/Shant/Henrique/Reind l 01/02/2021 12:15:00 PM EST [facility] ([facility] Felice Izquierdo MD: [address] [place] [address], Ph. Attender: Felice Izquierdo MD [facility] Medical 12/12/2020 12:00:00 AM EST [facility] ([facility]) Felice Izquierdo MD: [address] [place] [address], Ph. Attender: Felice Izquierdo MD [facility] Medical 12/12/2020 12:00:00 AM EST [facility] ([facility]) Felice Izquierdo MD: [address] [place] [address], Ph. Attender: Felice Izquierdo MD [facility] Medical 12/12/2020 12:00:00 AM EST [facility] ([facility]) Felice Izquierdo MD: [address] [place] [address], Ph. Attender: Felice Izquierdo MD [facility] Medical 12/12/2020 12:00:00 AM EST [facility] ([facility]) Felice Izquierdo MD: [address] [place] [address], Ph. Attender: Felice Izquierdo MD [facility] Medical 12/12/2020 12:00:00 AM EST [facility] ([facility]) Felice Izquierdo MD: [address] [place] [address], Ph. Attender: Felice Izquierdo MD [facility] Medical 10/09/2020 12:00:00 AM EST [facility] ([facility]) Felice Izquierdo MD: [address] [place] [address], Ph. Attender: Felice Izquierdo MD [facility] Medical 10/09/2020 12:00:00 AM EST [facility] ([facility]) Felice Izquierdo MD: [address] [place] [address], Ph. Attender: Felice Izquierdo MD [facility] Medical 10/09/2020 12:00:00 AM EST [facility] ([facility]) Felice Izquierdo MD: [address] [place] [address], Ph. Attender: Felice Izquierdo MD [facility] Medical 10/09/2020 12:00:00 AM EST [facility] ([facility]) Felice Izquierdo MD: [address] [place] [address], Ph. Attender: Felice Izquierdo MD [facility] Medical 10/09/2020 12:00:00 AM EST [facility] ([facility]) Felice Izquierdo MD: [address] [place] [address], Ph. Attender: Felice Izquierdo MD [facility] Medical 10/09/2020 12:00:00 AM EST [facility] ([facility]) Felice Izquierdo MD: [address] [place] [address], Ph. Attender: Felice Izquierdo MD [facility] Medical 10/09/2020 12:00:00 AM EST [facility] ([facility]) Outpatient Attender: Felice Izquierdo MD 09/25/2020 01:05:00 PM EST [facility] Felice Izquierdo MD: [address] [place] [address], Ph. Attender: Felice Izquierdo MD [facility] Medical 09/13/2020 12:00:00 AM EDT [facility] ([facility]) Felice Izquierdo MD: [address] [place] [address], Ph. Attender: Felice Izquierdo MD [facility] Medical 09/13/2020 12:00:00 AM EDT [facility] ([facility]) Felice Izquierdo MD: [address] [place] [address], Ph. Attender: Felice Izquierdo MD [facility] Medical 09/13/2020 12:00:00 AM EDT [facility] ([facility]) Felice Izquierdo MD: [address] [place] [address], Ph. Attender: Felice Izquierdo MD [facility] Medical 09/13/2020 12:00:00 AM EDT [facility] ([facility]) Felice Izquierdo MD: [address] [place] [address], Ph. Attender: Felice Izquierdo MD [facility] Medical 09/13/2020 12:00:00 AM EDT [facility] ([facility]) Felice Izquierdo MD: [address] [place] [address], Ph. Attender: Felice Izquierdo MD [facility] Medical 09/13/2020 12:00:00 AM EDT [facility] ([facility]) Felice Izquierdo MD: [address] [place] [address], Ph. Attender: Felice Izquierdo MD [facility] Medical 09/13/2020 12:00:00 AM EDT [facility] ([facility]) Medications Medication Brand Name Start Date Product Form Dose Route Admi nistrative Instructions Pharmacy Instructions Status Indications Reaction Description Data Source(s) Acetaminophen 325 MG / Hydrocodone Bitartrate 5 MG Ora l Tablet 5-325 mg HYDROCODONE/ACETAMINOPHEN 09/02/2021 12:00:00 AM EDT tablet 120 TAKE ONE TABLET BY MOUTH EVERY 6 HOURS NEEDED MAXIMUM DAILY DOSE = 4 TABLETS TAKE ONE TABLET BY MOUTH EVERY 6 HOURS NEEDED MAXIMUM DAILY DOSE = 4 TABLETS SOLD: 09/02/2021 [facility] Acetaminophen 325 MG / Hydrocodone Bitartrate 5 MG Ora l Tablet 5-325 mg HYDROCODONE/ACETAMINOPHEN 08/04/2021 12:00:00 AM EDT tablet 120 TAKE ONE TABLET BY MOUTH EVERY 6 HOURS MAXIMUM DAILY DOSE = 4 TABLETS TAKE ONE TABLET BY MOUTH EVERY 6 HOURS MAXIMUM DAILY DOSE = 4 TABLETS SOLD: 08/04/2021 [facility] Fluticasone propionate 0.05 MG/ACTUAT Metered Dose Parve[place] 50 mcg/actuation FLUTICASONE PROPIONATE 08/02/2021 12:00:00 AM EDT spray,suspension 16 INSTILL 2 SPRAYS IN EACH NOSTRIL DAILY INSTILL 2 SPRAYS IN EACH NOSTRIL DAILY SOLD: 08/08/2021 [facility] cetirizine hydrochloride 10 MG Oral Tablet Cetirizine HCL 06/17/2021 12:00:00 AM EDT active [facility] ([facility], ) doxycycline hyclate 100 MG Oral Capsule Doxycycline Hyclate 03/31/2021 12:00:00 AM EDT ORAL active [facility] ([facility], ) cetirizine hydrochloride 10 MG Oral Tablet [Zyrtec] Zyrtec A llergy 02/13/2021 12:00:00 AM EDT ORAL completed [facility] ([facility], ) doxycycline hyclate 100 MG Delayed Release Oral Tablet Doxyc ycline Hyclate 01/02/2021 12:00:00 AM EST ORAL active [facility] ([facility]) Fluticasone Propionate Fluticasone Propionate 01/02/2021 12:00:[address] active [facility] ([facility], ) Sodium Chloride 0.111 MEQ/ML Nasal Solution Saline Nasal Spr ay 01/02/2021 12:00:00 AM EST active M [facility] ([facility], ) Tamsulosin hydrochloride 0.4 MG Oral Capsule tamsulosi n 0.4 mg capsule tamsulosin 0.4 mg capsule completed tamsulosin hydrochloride 0.4 MG Oral Capsule [facility] ([facility]) 24 HR metoprolol succinate 25 MG Extende d Release Oral Tablet metoprolol succinate ER 25 mg tablet,extended release 24 hr TAKE ONE TABLET BY MOUTH ONCE DAILY metoprolol succinate ER 25 mg tablet,ext ended release 24 hr TAKE ONE TABLET BY MOUTH ONCE DAILY completed 24 HR metoprolol succinate 25 MG Extended Release Oral Tablet [facility] ([facility]) Losartan Potassium 50 MG Oral Tablet losartan 50 mg ta blet losartan 50 mg tablet completed losartan potassi um 50 MG Oral Tablet [facility] ([facility]) Tamsulosin hydrochloride 0.4 MG Oral Capsule tamsulosi n 0.4 mg capsule tamsulosin 0.4 mg capsule completed tamsulosin hydrochloride 0.4 MG Oral Capsule [facility] ([facility]) Losartan Potassium 50 MG Oral Tablet losartan 50 mg ta blet losartan 50 mg tablet completed losartan potassi um 50 MG Oral Tablet [facility] ([facility]) Metoprolol Tartrate 50 MG Oral Tablet metoprolol tartr ate 50 mg tablet metoprolol tartrate 50 mg tablet compl eted metoprolol tartrate 50 MG Oral Tablet [facility] ([facility]) Tamsulosin hydrochloride 0.4 MG Oral Capsule tamsulosi n 0.4 mg capsule tamsulosin 0.4 mg capsule completed tamsulosin hydrochloride 0.4 MG Oral Capsule [facility] ([facility]) Methocarbamol 750 MG Oral Tablet methocarbamol 750 mg tablet methocarbamol 750 mg tablet completed methocarbamo l 750 MG Oral Tablet [facility] ([facility]) Metoprolol Tartrate 50 MG Oral Tablet metoprolol tartr ate 50 mg tablet metoprolol tartrate 50 mg tablet compl eted metoprolol tartrate 50 MG Oral Tablet [facility] ([facility]) Clindamycin 150 MG Oral Capsule clindamycin HCl 150 mg capsule clindamycin HCl 150 mg capsule completed clindam ycin 150 MG Oral Capsule [facility] ([facility]) Amoxicillin 500 MG Oral Capsule amoxicillin 500 mg cap etta amoxicillin 500 mg capsule completed amoxicillin 50 0 MG Oral Capsule [facility] ([facility]) cefdinir 300 MG Oral Capsule cefdinir 300 mg capsule cefdinir 30 0 mg capsule completed cefdinir 300 M G Oral Capsule [facility] ([facility]) Prednisone 10 MG Oral Tablet prednisone 10 mg tablet prednisone 10 mg tablet completed prednisone 10 MG Oral Tablet [facility] ([facility]) Tamsulosin hydrochloride 0.4 MG Oral Capsule tamsulosi n 0.4 mg capsule tamsulosin 0.4 mg capsule completed tamsulosin hydrochloride 0.4 MG Oral Capsule [facility] ([facility]) Clindamycin 150 MG Oral Capsule clindamycin HCl 150 mg capsule clindamycin HCl 150 mg capsule completed clindam ycin 150 MG Oral Capsule [facility] ([facility]) Methocarbamol 750 MG Oral Tablet methocarbamol 750 mg tablet methocarbamol 750 mg tablet completed methocarbamo l 750 MG Oral Tablet [facility] ([facility]) Metoprolol Tartrate 50 MG Oral Tablet metoprolol tartr ate 50 mg tablet metoprolol tartrate 50 mg tablet compl eted metoprolol tartrate 50 MG Oral Tablet CLARINDA ([facility]) Docusate Sodium 100 MG Oral Capsule [DOK] DOK 100 mg capsule DOK 100 mg capsule completed docusate sodiu m 100 MG Oral Capsule [DOK] CLARINDA ([facility]) Prednisone 10 MG Oral Tablet prednisone 10 mg tablet prednisone 10 mg tablet completed prednisone 10 MG Oral Tablet CL[facility]INDA ([facility]) Amoxicillin 500 MG Oral Capsule amoxicillin 500 mg cap etta amoxicillin 500 mg capsule completed amoxicillin 50 0 MG Oral Capsule CLARINDA ([facility]) albuterol sulfate HFA 90 mcg/actuation aerosol inhaler [id number] completed [id number] 200 ACTUAT albuterol 0.09 MG/ACTUAT Metered Dose Inhaler CLARINDA ([facility]) Docusate Sodium 100 MG Oral Capsule [DOK] DOK 100 mg capsule DOK 100 mg capsule completed docusate sodiu m 100 MG Oral Capsule [DOK] CLARINDA ([facility]) Prednisone 10 MG Oral Tablet prednisone 10 mg tablet prednisone 10 mg tablet completed prednisone 10 MG Oral Tablet CLARINDA ([facility]) cefdinir 300 MG Oral Capsule cefdinir 300 mg capsule cefdinir 30 0 mg capsule completed cefdinir 300 M G Oral Capsule CLARINDA ([facility]) Sulfamethoxazole 800 MG / Trimethoprim 1 60 MG Oral Tablet sulfamethoxazole 800 mg-trimethoprim 160 mg tablet sulfamethoxazole 800 mg-trimethoprim 160 mg tablet completed sulfame thoxazole 800 MG / trimethoprim 160 MG Oral Tablet CLARINDA ([facility]) 120 ACTUAT Albuterol 0.1 MG/ACTUAT / Ipr atropium [place] 0.02 MG/ACTUAT Metered Dose Inhaler [Combivent] Combivent Respimat 20 mcg-100 mcg/actuation solution for inhalation Combivent Respimat 20 mcg-100 mcg/actuat ion solution for inhalation completed 120 ACTUAT albuterol 0.1 MG/ACTUAT / ipratropium bromide 0.02 MG/ACTUAT Inhalation Sebec [Combivent] CLARINDA ([facility]) Clindamycin 150 MG Oral Capsule clindamycin HCl 150 mg capsule clindamycin HCl 150 mg capsule completed clindam ycin 150 MG Oral Capsule CL[facility]INDA ([facility]) Sulfamethoxazole 800 MG / Trimethoprim 1 60 MG Oral Tablet sulfamethoxazole 800 mg-trimethoprim 160 mg tablet sulfamethoxazole 800 mg-trimethoprim 160 mg tablet completed sulfame thoxazole 800 MG / trimethoprim 160 MG Oral Tablet CL[facility]INDA ([facility]) cefdinir 300 MG Oral Capsule cefdinir 300 mg capsule cefdinir 30 0 mg capsule completed cefdinir 300 M G Oral Capsule CL[facility]DA ([facility]) Amoxicillin 500 MG Oral Capsule amoxicillin 500 mg cap etta amoxicillin 500 mg capsule completed amoxicillin 50 0 MG Oral Capsule CL[facility]INDA ([facility]) Methocarbamol 750 MG Oral Tablet methocarbamol 750 mg tablet methocarbamol 750 mg tablet completed methocarbamo l 750 MG Oral Tablet CL[facility]INDA ([facility]) albuterol sulfate HFA 90 mcg/actuation aerosol inhaler [id number] completed [id number] 200 ACTUAT albuterol 0.09 MG/ACTUAT Metered Dose Inhaler CLARINDA ([facility]) Losartan Potassium 50 MG Oral Tablet losartan 50 mg ta blet losartan 50 mg tablet completed losartan potassi um 50 MG Oral Tablet CL[facility]INDA ([facility]) Metoprolol Tartrate 50 MG Oral Tablet metoprolol tartr ate 50 mg tablet metoprolol tartrate 50 mg tablet compl eted metoprolol tartrate 50 MG Oral Tablet CL[facility]INDA ([facility]) albuterol sulfate HFA 90 mcg/actuation aerosol inhaler [id number] completed [id number] 200 ACTUAT albuterol 0.09 MG/ACTUAT Metered Dose Inhaler CLARINDA ([facility]) 120 ACTUAT Albuterol 0.1 MG/ACTUAT / Ipr atropium [place] 0.02 MG/ACTUAT Metered Dose Inhaler [Combivent] Combivent Respimat 20 mcg-100 mcg/actuation solution for inhalation Combivent Respimat 20 mcg-100 mcg/actuat ion solution for inhalation completed 120 ACTUAT albuterol 0.1 MG/ACTUAT / ipratropium bromide 0.02 MG/ACTUAT Inhalation [place] [Combivent] CLARINDA ([facility]) albuterol sulfate HFA 90 mcg/actuation aerosol inhaler [id number] completed [id number] 200 ACTUAT albuterol 0.09 MG/ACTUAT Metered Dose Inhaler CLARINDA ([facility]) Methocarbamol 750 MG Oral Tablet methocarbamol 750 mg tablet methocarbamol 750 mg tablet completed methocarbamo l 750 MG Oral Tablet CL[facility]INDA ([facility]) Amoxicillin 500 MG Oral Capsule amoxicillin 500 mg cap etta amoxicillin 500 mg capsule completed amoxicillin 50 0 MG Oral Capsule CL[facility]INDA ([facility]) 24 HR metoprolol succinate 25 MG Extende d Release Oral Tablet metoprolol succinate ER 25 mg tablet,extended release 24 hr TAKE ONE TABLET BY MOUTH ONCE DAILY metoprolol succinate ER 25 mg tablet,ext ended release 24 hr TAKE ONE TABLET BY MOUTH ONCE DAILY completed 24 HR metoprolol succinate 25 MG Extended Release Oral Tablet CL[facility]INDA ([facility]) 120 ACTUAT Albuterol 0.1 MG/ACTUAT / Ipr atropium [place] 0.02 MG/ACTUAT Metered Dose Inhaler [Combivent] Combivent Respimat 20 mcg-100 mcg/actuation solution for inhalation Combivent Respimat 20 mcg-100 mcg/actuat ion solution for inhalation completed 120 ACTUAT albuterol 0.1 MG/ACTUAT / ipratropium bromide 0.02 MG/ACTUAT Inhalation [place] [Combivent] CLARINDA ([facility]) Doxycycline Monohydrate 100 MG Oral Caps ule doxycycline monohydrate 100 mg capsule doxycycline monohydrate 100 mg capsule completed doxycycline monohydrate 100 MG Oral Capsule CL[facility]INDA ([facility]) Docusate Sodium 100 MG Oral Capsule [DOK] DOK 100 mg capsule DOK 100 mg capsule completed docusate sodiu m 100 MG Oral Capsule [DOK] CL[facility]INDA ([facility]) Tamsulosin hydrochloride 0.4 MG Oral Capsule tamsulosi n 0.4 mg capsule tamsulosin 0.4 mg capsule completed tamsulosin hydrochloride 0.4 MG Oral Capsule CL[facility]INDA ([facility]) cefdinir 300 MG Oral Capsule cefdinir 300 mg capsule cefdinir 30 0 mg capsule completed cefdinir 300 M G Oral Capsule PHONG ([facility]) Metoprolol Tartrate 50 MG Oral Tablet metoprolol tartr ate 50 mg tablet metoprolol tartrate 50 mg tablet compl eted metoprolol tartrate 50 MG Oral Tablet PHONG ([facility]) Clindamycin 150 MG Oral Capsule clindamycin HCl 150 mg capsule clindamycin HCl 150 mg capsule completed clindam ycin 150 MG Oral Capsule PHONG ([facility]) cefdinir 300 MG Oral Capsule cefdinir 300 mg capsule cefdinir 30 0 mg capsule completed cefdinir 300 M G Oral Capsule PHONG ([facility]) Sulfamethoxazole 800 MG / Trimethoprim 1 60 MG Oral Tablet sulfamethoxazole 800 mg-trimethoprim 160 mg tablet sulfamethoxazole 800 mg-trimethoprim 160 mg tablet completed sulfame thoxazole 800 MG / trimethoprim 160 MG Oral Tablet CL[facility]INDA ([facility]) Clindamycin 150 MG Oral Capsule clindamycin HCl 150 mg capsule clindamycin HCl 150 mg capsule completed clindam ycin 150 MG Oral Capsule CL[facility]INDA ([facility]) Tamsulosin hydrochloride 0.4 MG Oral Capsule tamsulosi n 0.4 mg capsule tamsulosin 0.4 mg capsule completed tamsulosin hydrochloride 0.4 MG Oral Capsule CLARINDA ([facility]) Doxycycline Monohydrate 100 MG Oral Caps ule doxycycline monohydrate 100 mg capsule doxycycline monohydrate 100 mg capsule completed doxycycline monohydrate 100 MG Oral Capsule CLARINDA ([facility]) Doxycycline Monohydrate 100 MG Oral Caps ule doxycycline monohydrate 100 mg capsule doxycycline monohydrate 100 mg capsule completed doxycycline monohydrate 100 MG Oral Capsule PHONG ([facility]) Amoxicillin 500 MG Oral Capsule amoxicillin 500 mg cap etta amoxicillin 500 mg capsule completed amoxicillin 50 0 MG Oral Capsule CL[facility]INDA ([facility]) Methocarbamol 750 MG Oral Tablet methocarbamol 750 mg tablet methocarbamol 750 mg tablet completed methocarbamo l 750 MG Oral Tablet CL[facility]DA ([facility]) Sulfamethoxazole 800 MG / Trimethoprim 1 60 MG Oral Tablet sulfamethoxazole 800 mg-trimethoprim 160 mg tablet sulfamethoxazole 800 mg-trimethoprim 160 mg tablet completed sulfame thoxazole 800 MG / trimethoprim 160 MG Oral Tablet PHONG ([facility]) Docusate Sodium 100 MG Oral Capsule [DOK] DOK 100 mg capsule DOK 100 mg capsule completed docusate sodiu m 100 MG Oral Capsule [DOK] CLARINDA ([facility]) Docusate Sodium 100 MG Oral Capsule [DOK] DOK 100 mg capsule DOK 100 mg capsule completed docusate sodiu m 100 MG Oral Capsule [DOK] CLARINDA ([facility]) Prednisone 10 MG Oral Tablet prednisone 10 mg tablet prednisone 10 mg tablet completed prednisone 10 MG Oral Tablet CL[facility]DA ([facility]) Sulfamethoxazole 800 MG / Trimethoprim 1 60 MG Oral Tablet sulfamethoxazole 800 mg-trimethoprim 160 mg tablet sulfamethoxazole 800 mg-trimethoprim 160 mg tablet completed sulfame thoxazole 800 MG / trimethoprim 160 MG Oral Tablet CL[facility]INDA ([facility]) 24 HR metoprolol succinate 25 MG Extende d Release Oral Tablet metoprolol succinate ER 25 mg tablet,extended release 24 hr TAKE ONE TABLET BY MOUTH ONCE DAILY metoprolol succinate ER 25 mg tablet,ext ended release 24 hr TAKE ONE TABLET BY MOUTH ONCE DAILY completed 24 HR metoprolol succinate 25 MG Extended Release Oral Tablet CL[facility]INDA ([facility]) Prednisone 10 MG Oral Tablet prednisone 10 mg tablet prednisone 10 mg tablet completed prednisone 10 MG Oral Tablet CL[facility]INDA ([facility]) Methocarbamol 750 MG Oral Tablet methocarbamol 750 mg tablet methocarbamol 750 mg tablet completed methocarbamo l 750 MG Oral Tablet CL[facility]INDA ([facility]) Clindamycin 150 MG Oral Capsule clindamycin HCl 150 mg capsule clindamycin HCl 150 mg capsule completed clindam ycin 150 MG Oral Capsule CLARINDA ([facility]) Doxycycline Monohydrate 100 MG Oral Caps ule doxycycline monohydrate 100 mg capsule TAKE ONE CAPSULE BY MOUTH TWICE DAILY FOR FOURTEEN DAYS doxycycline monohydrate 100 mg capsule TAKE ONE CAPSULE BY MOUTH TWICE DAILY FOR FOURTEEN DAYS completed doxycycline mono hydrate 100 MG Oral Capsule CL[facility]INDA ([facility]) Methocarbamol 750 MG Oral Tablet methocarbamol 750 mg tablet methocarbamol 750 mg tablet completed methocarbamo l 750 MG Oral Tablet CL[facility]INDA ([facility]) Sulfamethoxazole 800 MG / Trimethoprim 1 60 MG Oral Tablet sulfamethoxazole 800 mg-trimethoprim 160 mg tablet sulfamethoxazole 800 mg-trimethoprim 160 mg tablet completed sulfame thoxazole 800 MG / trimethoprim 160 MG Oral Tablet CL[facility]INDA ([facility]) Docusate Sodium 100 MG Oral Capsule [DOK] DOK 100 mg capsule DOK 100 mg capsule completed docusate sodiu m 100 MG Oral Capsule [DOK] CLARINDA ([facility]) Prednisone 10 MG Oral Tablet prednisone 10 mg tablet prednisone 10 mg tablet completed prednisone 10 MG Oral Tablet CL[facility]INDA ([facility]) Prednisone 10 MG Oral Tablet prednisone 10 mg tablet prednisone 10 mg tablet completed prednisone 10 MG Oral Tablet CL[facility]INDA ([facility]) Sulfamethoxazole 800 MG / Trimethoprim 1 60 MG Oral Tablet sulfamethoxazole 800 mg-trimethoprim 160 mg tablet sulfamethoxazole 800 mg-trimethoprim 160 mg tablet completed sulfame thoxazole 800 MG / trimethoprim 160 MG Oral Tablet CL[facility]INDA ([facility]) Clindamycin 150 MG Oral Capsule clindamycin HCl 150 mg capsule clindamycin HCl 150 mg capsule completed clindam ycin 150 MG Oral Capsule CL[facility]INDA ([facility]) cefdinir 300 MG Oral Capsule cefdinir 300 mg capsule cefdinir 30 0 mg capsule completed cefdinir 300 M G Oral Capsule CLARINDA ([facility]) Amoxicillin 500 MG Oral Capsule amoxicillin 500 mg cap etta amoxicillin 500 mg capsule completed amoxicillin 50 0 MG Oral Capsule [facility]) 120 ACTUAT Albuterol 0.1 MG/ACTUAT / Ipr atropium [place] 0.02 MG/ACTUAT Metered Dose Inhaler [Combivent] Combivent Respimat 20 mcg-100 mcg/actuation solution for inhalation Combivent Respimat 20 mcg-100 mcg/actuat ion solution for inhalation completed 120 ACTUAT albuterol 0.1 MG/ACTUAT / ipratropium bromide 0.02 MG/ACTUAT Inhalation [place]bec [Combivent] CLARINDA ([facility]) cefdinir 300 MG Oral Capsule cefdinir 300 mg capsule cefdinir 30 0 mg capsule completed cefdinir 300 M G Oral Capsule CLARINDA ([facility]) Metoprolol Tartrate 50 MG Oral Tablet metoprolol tartr ate 50 mg tablet metoprolol tartrate 50 mg tablet compl eted metoprolol tartrate 50 MG Oral Tablet CLARINDA ([facility]) Metoprolol Tartrate 50 MG Oral Tablet metoprolol tartr ate 50 mg tablet metoprolol tartrate 50 mg tablet compl eted metoprolol tartrate 50 MG Oral Tablet PHONG ([facility]) Tamsulosin hydrochloride 0.4 MG Oral Capsule tamsulosi n 0.4 mg capsule tamsulosin 0.4 mg capsule completed tamsulosin hydrochloride 0.4 MG Oral Capsule PHONG ([facility]) Docusate Sodium 100 MG Oral Capsule [DOK] DOK 100 mg capsule DOK 100 mg capsule completed docusate sodiu m 100 MG Oral Capsule [DOK] PHONG ([facility]) Amoxicillin 500 MG Oral Capsule amoxicillin 500 mg cap etta amoxicillin 500 mg capsule completed amoxicillin 50 0 MG Oral Capsule PHONG ([facility]) Insurance Providers Payer name Policy type / Coverage type Policy ID Covered democrat ID Covered democrat's relationship to erickson Policy [place] Plan Information Cancer GeneticsROE PLAN [id number] SP [id number] Medicaid S [id number] S [id number] Managed Care - [facility] P [id number] S [id number] Managed Care [facility] S [id number] S [id number] [facility] I [id number] Self [id number] [facility] MCDO [id number] SP [id number] Managed Care - [facility] P [id number] S [id number] Medicaid S [id number] S [id number] Managed Care - [facility] P [id number] S [id number] Managed Care - [facility] Community Plan P [id number] S [id number] Medicaid S [id number] S [id number] Medicaid S [id number] S [id number] Medicaid S [id number] S [id number] Managed Care - [facility] Community Plan P [id number] S [id number] Medicaid S [id number] S [id number] [place] [id number] SP [id number] EMEDNY [id number] SP [id number] Medicaid Dental O [id number] S [id number] [facility] PL[facility] MCDO [id number] SP [id number] [facility](MCAID) O [id number] S [id number] Managed Care - [facility] Community Plan O [id number] S [id number] Worker's Compensation O [id number] S [id number] Managed Care BCBS O [id number] S [id number] Accidental O [id number] S [id number] MEDICAID [id number] SP [id number] [facility] [id number] SP [id number] Problems, Conditions, and Diagnoses Code Display Name Description Problem Type Effective Dates Data Source(s) 433909008 Body mass index 30+ - obesity Body Mass Index 30+ - Ob esity Problem 04/16/2021 12:00:00 AM EDT PHONG ([facility]) [id number] Body mass index 30+ - obesity Body Mass Index 30+ - Ob esity Problem 04/16/2021 12:00:00 AM EDT PHONG ([facility]) [id number] Body mass index 30+ - obesity Body Mass Index 30+ - Ob esity Problem 04/16/2021 12:00:00 AM EDT PHONG ([facility]) [id number] Tobacco user Tobacco User Problem 03/13/2021 12:00:00 A M EDT CLARINDA ([facility]) [id number] Tobacco user Tobacco User Problem 03/13/2021 12:00:00 A M EDT CLARINDA ([facility]) [id number] Tobacco user Tobacco User Problem 03/13/2021 12:00:00 A M EDT CLARINDA ([facility]) [id number] Tobacco user Tobacco User Problem 03/13/2021 12:00:00 A M EDT CLARINDA ([facility]) [id number] Essential hypertension Essential hypertension Problem 01/02/2021 12:00:00 AM EST [facility] ([facility], ) [id number] Hearing loss of right ear Hearing Loss of Right Ear Pr oblem 12/13/2020 12:00:00 AM EST PHONG ([facility]) [id number] Hearing loss of right ear Hearing Loss of Right Ear Pr oblem 12/13/2020 12:00:00 AM EST [facility]ONG ([facility]) [id number] Hearing loss of right ear Hearing Loss of Right Ear Pr oblem 12/13/2020 12:00:00 AM EST PHONG ([facility]) [id number] Hearing loss of right ear Hearing Loss of Right Ear Pr oblem 12/13/2020 12:00:00 AM REINALDO DARLING ([facility]) [id number] Hearing loss of right ear Hearing Loss of Right Ear Pr oblem 12/13/2020 12:00:00 AM EST PHONG ([facility]) [id number] Asthma Asthma Problem 09/05/2020 05:50:50 PM ED T PHONG ([facility]) [id number] Hypertensive disorder Hypertensive Disorder Problem 09/05/2020 05:50:50 PM EDT PHONG ([facility]) [id number] Asthma Asthma Problem 09/05/2020 05:50:50 PM ED T PHONG ([facility]) [id number] Hypertensive disorder Hypertensive Disorder Problem 09/05/2020 05:50:50 PM EDT PHONG ([facility]) [id number] Asthma Asthma Problem 09/05/2020 05:50:50 PM ED T PHONG ([facility]) [id number] Hypertensive disorder Hypertensive Disorder Problem 09/05/2020 05:50:50 PM EDT PHONG ([facility]) [id number] Asthma Asthma Problem 09/05/2020 05:50:50 PM ED T PHONG ([facility]) [id number] Hypertensive disorder Hypertensive Disorder Problem 09/05/2020 05:50:50 PM EDT PHONG ([facility]) [id number] Asthma Asthma Problem 09/05/2020 05:50:50 PM ED T PHONG ([facility]) [id number] Hypertensive disorder Hypertensive Disorder Problem 09/05/2020 05:50:50 PM EDT PHONG ([facility]) [id number] Asthma Asthma Problem 09/05/2020 05:50:50 PM ED T PHONG ([facility]) [id number] Hypertensive disorder Hypertensive Disorder Problem 09/05/2020 05:50:50 PM EDT PHONG ([facility]) [id number] Asthma Asthma Problem 09/05/2020 05:50:50 PM ED T PHONG ([facility]) [id number] Hypertensive disorder Hypertensive Disorder Problem 09/05/2020 05:50:50 PM EDT PHONG ([facility]) Surgeries/Procedures Procedure Description Date Indications Data Source(s) OFFICE OUTPATIENT VISIT 25 MINUTES 08/01/2021 12:00:00 AM EDT [facility] ([facility]) OFFICE OUTPATIENT VISIT 25 MINUTES 03/31/2021 12:00:00 AM EDT [facility] ([facility]) OFFICE OUTPATIENT VISIT 25 MINUTES 02/13/2021 12:00:00 AM EDT [facility] ([facility]) Tympanostomy, General Anesthesia 02/06/2021 12:00:00 A M [facility] Endoscopy Nasal Diagnostic 01/02/2021 12:00:00 AM EST [facility] ([facility]) Remove Impacted Cerumen 01/02/2021 12:00:00 AM EST [facility] ([facility]) Results ID Date Data Source [id number] 09/18/2021 11:05:00 AM EDT [facility] Name Value Range Interpretation Code Description Data Delia rce(s) Supporting Document(s) SARS-CoV-2 (COVID-19) RNA [Presence] in Respiratory specimen by MAI with probe detection Not Detected [facility] This lab was ordered by [facility] and reported by [employer] ID Date Data Source [id number] 05/16/2021 01:20:00 PM EDT [facility]) Name Value Range Interpretation Code Description Data Delia rce(s) Supporting Document(s) Urea nitrogen [Mass/volume] in Serum or Plasma 12 mg/dL 7-25 Urea Nitrogen (BUN) [facility]) Glucose [Mass/volume] in Serum or Plasma 96 mg/dL 65-99 Glucose [facility]) Glomerular filtration rate/1.73 sq M.pre dicted among blacks [Volume Rate/Area] in Serum, Plasma or Blood by Creatinine-based formula (CKD-EPI) 115 mL/min/1.73m2 > or = 60 eGFR CLARINDA ([facility]) Glomerular filtration rate/1.73 sq M.pre dicted among non-blacks [Volume Rate/Area] in Serum, Plasma or Blood by Creatinine-based formula (CKD-EPI) 100 mL/min/1.73m2 > or = 60 eGFR Non-afr. [place] PHONG ([facility]) Creatinine [Mass/volume] in Serum or Plasma 0.94 mg/dL 0.60-1.35 Creatinine PHONG ([facility]) Urea nitrogen/Creatinine [Mass Ratio] in Serum or Plasma not applic able 6-22 BUN/creatinine Ratio PHONG ([facility]) Potassium [Moles/volume] in Serum or Plasma 4.4 mmol/L 3.5-5.3 Potassium PHONG ([facility]) Sodium [Moles/volume] in Serum or Plasma 139 mmol/L 135-146 Sodium PHONG ([facility]) Carbon dioxide, total [Moles/volume] in Serum or Plasma 27 mmol/L 20-32 Carbon Dioxide PHONG ([facility]) Calcium [Mass/volume] in Serum or Plasma 9.4 mg/dL 8.6-10.3 Calcium PHONG ([facility]) Chloride [Moles/volume] in Serum or Plasma 103 mmol/L 98-110 Chloride PHONG ([facility]) Albumin [Mass/volume] in Serum or Plasma 4.2 g/dL 3.6-5.1 Albumin CLARINDA ([facility]) Albumin/Globulin [Mass Ratio] in Serum or Plasma 1.3 (calc) 1.0-2 .5 Albumin/globulin Ratio CLARINDA ([facility]) Protein [Mass/volume] in Serum or Plasma 7.4 g/dL 6.1-8.1 Protein, Total PHONG ([facility]) Globulin [Mass/volume] in Serum by calculation 3.2 g/dL_(calc) 1.9- 3.7 Globulin PHONG ([facility]) Aspartate aminotransferase [Enzymatic activity/volume] in Serum or Plasma 32 U/L 10-40 Ast PHONG ([facility]) Alanine aminotransferase [Enzymatic activity/volume] in Seru m or Plasma 43 U/L 9-46 Alt PHONG ([facility]) Alkaline phosphatase [Enzymatic activity/volume] in Serum or Plasma 86 U/L 36-130 Alkaline Phosphatase PHONG ([facility]) Bilirubin.total [Mass/volume] in Serum or Plasma 0.4 mg/dL 0.2-1 .2 Bilirubin, Total PHONG ([facility]) ID Date Data Source [id number] 05/16/2021 01:20:00 PM EDT CLARINDA ([facility]) Name Value Range Interpretation Code Description Data Delia rce(s) Supporting Document(s) Thyroxine (T4) [Mass/volume] in Serum or Plasma 8.3 mcg/dL 4.9-10 .5 T4 (Thyroxine), Total PHONG ([facility]) Triiodothyronine resin uptake (T3RU) in Serum or Plasma 30 % 22 -35 T3 Uptake PHONG ([facility]) Thyrotropin [Units/volume] in Serum or Plasma 1.26 mIU/L 0.40-4.50 Tsh CLARINDA ([facility]) Thyroxine (T4) free index in Serum or Plasma by calculation 1.4-3.8 [facility] Date Data Source [id number] 05/16/2021 01:20:00 PM EDT CLARINDA ([facility]) Name Value Range Interpretation Code Description Data Delia rce(s) Supporting Document(s) Cholesterol [Mass/volume] in Serum or Plasma 165 mg/dL <200 Cholesterol, Total PHONG ([facility]) Triglyceride [Mass/volume] in Serum or Plasma 191 mg/dL <150 Above high normal Triglycerides PHONG ([facility]) Cholesterol in HDL [Mass/volume] in Serum or Plasma 41 mg/dL > or = 40 HDL Cholesterol PHONG ([facility]) Cholesterol.total/Cholesterol in HDL [Mass Ratio] in Serum o r Plasma 4.0 (calc) <5.0 Chol/hdlc Ratio PHONG ([facility]) Cholesterol in LDL [Mass/volume] in Serum or Plasma by calculation 95 mg/dL_(calc) LDL-cholesterol PHONG ([facility]) Cholesterol non HDL [Mass/volume] in Serum or Plasma 124 mg/dL_(elyssa c) <130 Non HDL Cholesterol PHONG ([facility]) ID Date Data Source [id number] 02/01/2021 11:00:00 AM EST [facility] Name Value Range Interpretation Code Description Data Delia rce(s) Supporting Document(s) SARS coronavirus 2 RNA Not Detected [facility] [place] This lab was ordered by [facility] and reported by [facility]. ID Date Data Source [id number] 09/13/2020 12:35:00 PM EDT CLARINDA ([facility]) Name Value Range Interpretation Code Description Data Delia rce(s) Supporting Document(s) thyroid stimulating hormone 0.823 uIU/mL 0.358-3.740 Thyroid Stimulating Hormone CLARINDA ([facility]) ID Date Data Source [id number] 09/13/2020 12:35:00 PM EDT CLARINDA ([facility]) Name Value Range Interpretation Code Description Data Delia rce(s) Supporting Document(s) triglycerides level 199 mg/dL <150 Above high normal Triglycer ides Level PHONG ([facility]) HDL cholesterol 52 mg/dL >40 [facility] cholesterol level 162 mg/dL <200 Cholesterol Level CLARINDA ([facility]) Cholesterol in LDL [Mass/volume] in Serum or Plasma 70 mg/dL <1 00 LDL Cholesterol PHONG ([facility]) non-HDL-C 110 mg/dL Non-hdl-c PHONG ([facility]) cholesterol risk ratio <5 Cholesterol R isk Ratio CLARINDA ([facility]) ID Date Data Source [id number] 09/13/2020 12:35:00 PM EDT CLARINDA ([facility]) Name Value Range Interpretation Code Description Data Delia rce(s) Supporting Document(s) glucose, fasting 94 mg/dL 70-100 Glucose, Fasting AT [facility] ([facility]) creatinine for GFR 0.75 mg/dL 0.70-1.30 Creatinine for GF R CLARINDA ([facility]) blood urea nitrogen 7 mg/dL 7-18 Blood Urea Nitro gen CLARINDA ([facility]) glomerular filtration rate > 60.0 >60 Glomerula r Filtration Rate PHONG ([facility]) sodium level 137 mEq/L 136-145 Sodium Level PHONG ([facility]) potassium serum 4.2 mEq/L 3.5-5.1 Potassium Serum ATHE NA ([facility]) carbon dioxide level 26 mEq/L 21-32 Carbon Dioxide Level PHONG ([facility]) chloride level 103 mEq/L 98-107 Chloride Level PHONG ([facility]) calcium level 8.6 mg/dL 8.5-10.1 Calcium Level PHONG ( [facility]) anion gap 8 mEq/L 8-16 Anion Gap PHONG ([facility]) AST/SGOT 70 U/L 7-37 Above high normal AST/SGOT PHONG ([facility]) bilirubin,total 0.4 mg/dL 0.2-1.0 Bilirubin,total ATHE ([facility]) ALT/SGPT 103 U/L 12-78 Above high normal ALT/SGPT PHONG ([facility]) alkaline phosphatase 91 U/L 45-117 Alkaline Phosph atase PHONG ([facility]) total protein 7.5 gm/dL 6.4-8.2 Total Protein PHONG ( [facility]) albumin/globulin ratio Albumin/globu master Ratio PHONG ([facility]) albumin 3.3 gm/dL 3.2-5.2 Albumin PH[facility] ([facility]) ID Date Data Source [id number] 09/13/2020 12:35:00 PM EDT PHONG ([facility]) Name Value Range Interpretation Code Description Data Delia rce(s) Supporting Document(s) thyroid stimulating hormone 0.823 uIU/mL 0.358-3.740 Thyroid Stimulating Hormone PHONG ([facility]) ID Date Data Source [id number] 09/13/2020 12:35:00 PM EDT PHONG ([facility]) Name Value Range Interpretation Code Description Data Delia rce(s) Supporting Document(s) triglycerides level 199 mg/dL <150 Above high normal Triglycer ides Level PHONG ([facility]) HDL cholesterol 52 mg/dL >40 HDL Cholesterol ATHE ([facility]) cholesterol level 162 mg/dL <200 Cholesterol Level PHONG ([facility]) Cholesterol in LDL [Mass/volume] in Serum or Plasma 70 mg/dL <1 00 LDL Cholesterol PHONG ([facility]) cholesterol risk ratio <5 Cholesterol R isk Ratio PHONG ([facility]) non-HDL-C 110 mg/dL Non-hdl-c PH[facility] ([facility]) ID Date Data Source [id number] 09/13/2020 12:35:00 PM EDT PHONG ([facility]) Name Value Range Interpretation Code Description Data Delia rce(s) Supporting Document(s) glucose, fasting 94 mg/dL 70-100 Glucose, Fasting AT [facility]) blood urea nitrogen 7 mg/dL 7-18 Blood Urea Nitro gen PHONG ([facility]) glomerular filtration rate > 60.0 >60 Glomerula r Filtration Rate PHONG ([facility]) creatinine for GFR 0.75 mg/dL 0.70-1.30 Creatinine for GF R PHONG ([facility]) sodium level 137 mEq/L 136-145 Sodium Level PHONG ([facility]) chloride level 103 mEq/L 98-107 Chloride Level PHONG ([facility]) potassium serum 4.2 mEq/L 3.5-5.1 Potassium Serum ATHE NA ([facility]) anion gap 8 mEq/L 8-16 Anion Gap PHONG ([facility]) carbon dioxide level 26 mEq/L 21-32 Carbon Dioxide Level PHONG ([facility]) ALT/SGPT 103 U/L 12-78 Above high normal ALT/SGPT PHONG ([facility]) calcium level 8.6 mg/dL 8.5-10.1 Calcium Level PHONG ( [facility]) AST/SGOT 70 U/L 7-37 Above high normal AST/SGOT PHONG ([facility]) bilirubin,total 0.4 mg/dL 0.2-1.0 Bilirubin,total ATHE NA ([facility]) alkaline phosphatase 91 U/L 45-117 Alkaline Phosph atase PHONG ([facility]) albumin/globulin ratio Albumin/globu master Ratio PHONG ([facility]) total protein 7.5 gm/dL 6.4-8.2 Total Protein PHONG ( [facility]) albumin 3.3 gm/dL 3.2-5.2 Albumin PHONG ([facility]) ID Date Data Source [id number] 09/13/2020 12:35:00 PM EDT PHONG ([facility]) Name Value Range Interpretation Code Description Data Delia rce(s) Supporting Document(s) thyroid stimulating hormone 0.823 uIU/mL 0.358-3.740 Thyroid Stimulating Hormone PHONG ([facility]) ID Date Data Source [id number] 09/13/2020 12:35:00 PM EDT PHONG ([facility]) Name Value Range Interpretation Code Description Data Delia rce(s) Supporting Document(s) cholesterol level 162 mg/dL <200 Cholesterol Level PHONG ([facility]) Cholesterol in LDL [Mass/volume] in Serum or Plasma 70 mg/dL <1 00 LDL Cholesterol PH[facility] ([facility]) non-HDL-C 110 mg/dL Non-hdl-c PHONG ([facility]) HDL cholesterol 52 mg/dL >40 HDL Cholesterol ATHE NA ([facility]) triglycerides level 199 mg/dL <150 Above high normal Triglycer ides Level PHONG ([facility]) cholesterol risk ratio <5 Cholesterol R isk Ratio PHONG ([facility]) ID Date Data Source [id number] 09/13/2020 12:35:00 PM EDT PHONG ([facility]) Name Value Range Interpretation Code Description Data Delia rce(s) Supporting Document(s) glucose, fasting 94 mg/dL 70-100 Glucose, Fasting AT [facility] ([facility]) blood urea nitrogen 7 mg/dL 7-18 Blood Urea Nitro gen PHONG ([facility]) creatinine for GFR 0.75 mg/dL 0.70-1.30 Creatinine for GF R PHONG ([facility]) sodium level 137 mEq/L 136-145 Sodium Level PHONG ([facility]) potassium serum 4.2 mEq/L 3.5-5.1 Potassium Serum ATHE NA ([facility]) glomerular filtration rate > 60.0 >60 Glomerula r Filtration Rate PHONG ([facility]) anion gap 8 mEq/L 8-16 Anion Gap PHONG ([facility]) chloride level 103 mEq/L 98-107 Chloride Level PHONG ([facility]) calcium level 8.6 mg/dL 8.5-10.1 Calcium Level PHONG ( [facility]) carbon dioxide level 26 mEq/L 21-32 Carbon Dioxide Level PHONG ([facility]) AST/SGOT 70 U/L 7-37 Above high normal AST/SGOT PHONG ([facility]) alkaline phosphatase 91 U/L 45-117 Alkaline Phosph atase PHONG ([facility]) albumin 3.3 gm/dL 3.2-5.2 Albumin PHONG ([facility]) total protein 7.5 gm/dL 6.4-8.2 Total Protein PHONG ( [facility]) ALT/SGPT 103 U/L 12-78 Above high normal ALT/SGPT PHONG ([facility]) bilirubin,total 0.4 mg/dL 0.2-1.0 Bilirubin,total ATHE NA ([facility]) albumin/globulin ratio Albumin/globu master Ratio PHONG ([facility]) ID Date Data Source [id number] 09/13/2020 12:35:00 PM EDT PHONG ([facility]) Name Value Range Interpretation Code Description Data Delia rce(s) Supporting Document(s) thyroid stimulating hormone 0.823 uIU/mL 0.358-3.740 Thyroid Stimulating Hormone PHONG ([facility]) ID Date Data Source [id number] 09/13/2020 12:35:00 PM EDT PHONG ([facility]) Name Value Range Interpretation Code Description Data Delia rce(s) Supporting Document(s) triglycerides level 199 mg/dL <150 Above high normal Triglycer ides Level PHONG ([facility]) Cholesterol in LDL [Mass/volume] in Serum or Plasma 70 mg/dL <1 00 LDL Cholesterol PHONG ([facility]) HDL cholesterol 52 mg/dL >40 HDL Cholesterol ATHE NA ([facility]) non-HDL-C 110 mg/dL Non-hdl-c PHONG ([facility]) cholesterol level 162 mg/dL <200 Cholesterol Level PHONG ([facility]) cholesterol risk ratio <5 Cholesterol R isk Ratio PHONG ([facility]) ID Date Data Source [id number] 09/13/2020 12:35:00 PM EDT PHONG ([facility]) Name Value Range Interpretation Code Description Data Delia rce(s) Supporting Document(s) creatinine for GFR 0.75 mg/dL 0.70-1.30 Creatinine for GF R PHONG ([facility]) glucose, fasting 94 mg/dL 70-100 Glucose, Fasting AT [facility]) blood urea nitrogen 7 mg/dL 7-18 Blood Urea Nitro gen PHONG ([facility]) sodium level 137 mEq/L 136-145 Sodium Level PHONG ([facility]) potassium serum 4.2 mEq/L 3.5-5.1 Potassium Serum ATHE NA ([facility]) glomerular filtration rate > 60.0 >60 Glomerula r Filtration Rate PHONG ([facility]) carbon dioxide level 26 mEq/L 21-32 Carbon Dioxide Level PHONG ([facility]) anion gap 8 mEq/L 8-16 Anion Gap PHONG ([facility]) chloride level 103 mEq/L 98-107 Chloride Level PHONG ([facility]) calcium level 8.6 mg/dL 8.5-10.1 Calcium Level PHONG ( [facility]) ALT/SGPT 103 U/L 12-78 Above high normal ALT/SGPT PHONG ([facility]) alkaline phosphatase 91 U/L 45-117 Alkaline Phosph atase PHONG ([facility]) AST/SGOT 70 U/L 7-37 Above high normal AST/SGOT PHONG ([facility]) albumin 3.3 gm/dL 3.2-5.2 Albumin PHONG ([facility]) total protein 7.5 gm/dL 6.4-8.2 Total Protein PHONG ( [facility]) albumin/globulin ratio Albumin/globu master Ratio PHONG ([facility]) bilirubin,total 0.4 mg/dL 0.2-1.0 Bilirubin,total ATHE NA ([facility]) ID Date Data Source [id number] 09/13/2020 12:35:00 PM EDT PHONG ([facility]) Name Value Range Interpretation Code Description Data Delia rce(s) Supporting Document(s) thyroid stimulating hormone 0.823 uIU/mL 0.358-3.740 Thyroid Stimulating Hormone PHONG ([facility]) ID Date Data Source [id number] 09/13/2020 12:35:00 PM EDT PHONG ([facility]) Name Value Range Interpretation Code Description Data Delia rce(s) Supporting Document(s) triglycerides level 199 mg/dL <150 Above high normal Triglycer ides Level PHONG ([facility]) cholesterol risk ratio <5 Cholesterol R isk Ratio PHONG ([facility]) cholesterol level 162 mg/dL <200 Cholesterol Level PHONG ([facility]) Cholesterol in LDL [Mass/volume] in Serum or Plasma 70 mg/dL <1 00 LDL Cholesterol PHONG ([facility]) HDL cholesterol 52 mg/dL >40 HDL Cholesterol ATHE NA ([facility]) non-HDL-C 110 mg/dL Non-hdl-c PHONG ([facility]) ID Date Data Source [id number] 09/13/2020 12:35:00 PM EDT PHONG ([facility]) Name Value Range Interpretation Code Description Data Delia rce(s) Supporting Document(s) glucose, fasting 94 mg/dL 70-100 Glucose, Fasting AT [facility] ([facility]) blood urea nitrogen 7 mg/dL 7-18 Blood Urea Nitro gen PHONG ([facility]) creatinine for GFR 0.75 mg/dL 0.70-1.30 Creatinine for GF R PHONG ([facility]) potassium serum 4.2 mEq/L 3.5-5.1 Potassium Serum ATHE ([facility]) glomerular filtration rate > 60.0 >60 Glomerula r Filtration Rate PHONG ([facility]) sodium level 137 mEq/L 136-145 Sodium Level PHONG ([facility]) carbon dioxide level 26 mEq/L 21-32 Carbon Dioxide Level PHONG ([facility]) chloride level 103 mEq/L 98-107 Chloride Level PHONG ([facility]) anion gap 8 mEq/L 8-16 Anion Gap PHONG ([facility]) calcium level 8.6 mg/dL 8.5-10.1 Calcium Level CLARINDA ( [facility]) ALT/SGPT 103 U/L 12-78 Above high normal ALT/SGPT PHONG ([facility]) AST/SGOT 70 U/L 7-37 Above high normal AST/SGOT PHONG ([facility]) bilirubin,total 0.4 mg/dL 0.2-1.0 Bilirubin,total ATHE ([facility]) alkaline phosphatase 91 U/L 45-117 Alkaline Phosph atase PHONG ([facility]) albumin 3.3 gm/dL 3.2-5.2 Albumin PHONG ([facility]) total protein 7.5 gm/dL 6.4-8.2 Total Protein PHONG ( [facility]) albumin/globulin ratio Albumin/globu master Ratio PHONG ([facility]) ID Date Data Source [id number] 09/13/2020 12:35:00 PM EDT PHONG ([facility]) Name Value Range Interpretation Code Description Data Delia rce(s) Supporting Document(s) thyroid stimulating hormone 0.823 uIU/mL 0.358-3.740 Thyroid Stimulating Hormone PHONG ([facility]) ID Date Data Source [id number] 09/13/2020 12:35:00 PM EDT PHONG ([facility]) Name Value Range Interpretation Code Description Data Delia rce(s) Supporting Document(s) triglycerides level 199 mg/dL <150 Above high normal Triglycer ides Level PHONG ([facility]) Cholesterol in LDL [Mass/volume] in Serum or Plasma 70 mg/dL <1 00 LDL Cholesterol PHONG ([facility]) non-HDL-C 110 mg/dL Non-hdl-c PHONG ([facility]) cholesterol level 162 mg/dL <200 Cholesterol Level PHONG ([facility]) HDL cholesterol 52 mg/dL >40 HDL Cholesterol ATHE ([facility]) cholesterol risk ratio <5 Cholesterol R isk Ratio PHONG ([facility]) ID Date Data Source [id number] 09/13/2020 12:35:00 PM EDT CLARINDA ([facility]) Name Value Range Interpretation Code Description Data Delia rce(s) Supporting Document(s) creatinine for GFR 0.75 mg/dL 0.70-1.30 Creatinine for GF R PHONG ([facility]) blood urea nitrogen 7 mg/dL 7-18 Blood Urea Nitro gen PHONG ([facility]) glucose, fasting 94 mg/dL 70-100 Glucose, Fasting AT [facility]) glomerular filtration rate > 60.0 >60 Glomerula r Filtration Rate PHONG ([facility]) chloride level 103 mEq/L 98-107 Chloride Level PHONG ([facility]) potassium serum 4.2 mEq/L 3.5-5.1 Potassium Serum ATHE NA ([facility]) sodium level 137 mEq/L 136-145 Sodium Level PHONG ([facility]) anion gap 8 mEq/L 8-16 Anion Gap PHONG ([facility]) carbon dioxide level 26 mEq/L 21-32 Carbon Dioxide Level PHONG ([facility]) calcium level 8.6 mg/dL 8.5-10.1 Calcium Level PHONG ( [facility]) AST/SGOT 70 U/L 7-37 Above high normal AST/SGOT PHONG ([facility]) ALT/SGPT 103 U/L 12-78 Above high normal ALT/SGPT PH[facility] ([facility]) alkaline phosphatase 91 U/L 45-117 Alkaline Phosph atase PHONG ([facility]) total protein 7.5 gm/dL 6.4-8.2 Total Protein PHONG ( [facility]) bilirubin,total 0.4 mg/dL 0.2-1.0 Bilirubin,total ATHE ([facility]) albumin 3.3 gm/dL 3.2-5.2 Albumin PHONG ([facility]) albumin/globulin ratio Albumin/globu master Ratio PHONG ([facility]) ID Date Data Source [id number] 09/13/2020 12:35:00 PM EDT PHONG ([facility]) Name Value Range Interpretation Code Description Data Delia rce(s) Supporting Document(s) thyroid stimulating hormone 0.823 uIU/mL 0.358-3.740 Thyroid Stimulating Hormone PHONG ([facility]) ID Date Data Source [id number] 09/13/2020 12:35:00 PM EDT PHONG ([facility]) Name Value Range Interpretation Code Description Data Delai rce(s) Supporting Document(s) cholesterol level 162 mg/dL <200 Cholesterol Level PHONG ([facility]) Cholesterol in LDL [Mass/volume] in Serum or Plasma 70 mg/dL <1 00 LDL Cholesterol PHONG ([facility]) HDL cholesterol 52 mg/dL >40 HDL Cholesterol ATHE ([facility]) triglycerides level 199 mg/dL <150 Above high normal Triglycer ides Level PHONG ([facility]) non-HDL-C 110 mg/dL Non-hdl-c PHONG ([facility]) cholesterol risk ratio <5 Cholesterol R isk Ratio PHONG ([facility]) ID Date Data Source [id number] 09/13/2020 12:35:00 PM EDT CLARINDA ([facility]) Name Value Range Interpretation Code Description Data Delia rce(s) Supporting Document(s) glucose, fasting 94 mg/dL 70-100 Glucose, Fasting AT [facility] ([facility]) creatinine for GFR 0.75 mg/dL 0.70-1.30 Creatinine for GF R PHONG ([facility]) blood urea nitrogen 7 mg/dL 7-18 Blood Urea Nitro gen CLARINDA ([facility]) glomerular filtration rate > 60.0 >60 Glomerula r Filtration Rate PHONG ([facility]) chloride level 103 mEq/L 98-107 Chloride Level CLARINDA ([facility]) potassium serum 4.2 mEq/L 3.5-5.1 Potassium Serum ATHE ([facility]) sodium level 137 mEq/L 136-145 Sodium Level PHONG ([facility]) carbon dioxide level 26 mEq/L 21-32 Carbon Dioxide Level PHONG ([facility]) calcium level 8.6 mg/dL 8.5-10.1 Calcium Level PHONG ( [facility]) ALT/SGPT 103 U/L 12-78 Above high normal ALT/SGPT PHONG ([facility]) anion gap 8 mEq/L 8-16 Anion Gap PHONG ([facility]) AST/SGOT 70 U/L 7-37 Above high normal AST/SGOT PHONG ([facility]) total protein 7.5 gm/dL 6.4-8.2 Total Protein PHONG ( [facility]) albumin 3.3 gm/dL 3.2-5.2 Albumin PHOGN ([facility]) alkaline phosphatase 91 U/L 45-117 Alkaline Phosph atase PHONG ([facility]) bilirubin,total 0.4 mg/dL 0.2-1.0 Bilirubin,total ATHE ([facility]) albumin/globulin ratio Albumin/globu master Ratio PHONG ([facility]) Procedure Social History No Information Vital Signs ID Date Data Source [id number] Name Value Range Interpretation Code Description Data Source(s) Body height 69 [in_i] 69 [in_i] [facility] ([facility]) 5'9" [place] body weight 160 [lb_av] 160 [lb_av] [facility] ([facility]) Body weight 103.874 kg 103.874 kg [facility] ([facility]) Body surface area Derived from formula 2.19 m2 2.19 m2 [facility] ([facility]) Body weight 229.00 [lb_av] 229.00 [lb_av] [facility] ([facility]) Body mass index (BMI) [Ratio] 33.8 kg/m2 33.8 k g/m2 [facility] ([facility]) Body height 69 [in_i] 69 [in_i] [facility] ([facility]) 5'9" Body weight 229.00 [lb_av] 229.00 [lb_av] [facility] ([facility]) Body mass index (BMI) [Ratio] 33.8 kg/m2 33.8 k g/m2 [facility] ([facility]) [place] body weight 160 [lb_av] 160 [lb_av] [facility] ([facility]) Body weight 103.874 kg 103.874 kg [facility] ([facility]) Body surface area Derived from formula 2.19 m2 2.19 m2 [facility] ([facility]) Body mass index (BMI) [Ratio] 33.3 kg/m2 33.3 k g/m2 [facility] ([facility]) Diastolic blood pressure 87 mm[Hg] 87 mm[Hg] [facility] ([facility]) Body height 70.3 [in_i] 70.3 [in_i] [facility] ([facility]) Systolic blood pressure 137 mm[Hg] 137 mm[Hg] A [facility] ([facility]) Body weight 3748 [oz_av] 3748 [oz_av] [facility] ([facility]) Body height 70.3 [in_i] 70.3 [in_i] [facility] ([facility]) Body height 70.3 [in_i] 70.3 [in_i] [facility] ([facility]) Diastolic blood pressure 82 mm[Hg] 82 mm[Hg] PHONG ([facility]) Body height 70.3 [in_i] 70.3 [in_i] PHONG ([facility]) Body mass index (BMI) [Ratio] 32.9 kg/m2 32.9 k g/m2 PHONG ([facility]) Systolic blood pressure 146 mm[Hg] 146 mm[Hg] A [facility] ([facility]) Body weight 3700 [oz_av] 3700 [oz_av] PHONG ([facility]) Diastolic blood pressure 82 mm[Hg] 82 mm[Hg] PHONG ([facility]) Body height 70.3 [in_i] 70.3 [in_i] PHONG ([facility]) Body mass index (BMI) [Ratio] 32.9 kg/m2 32.9 k g/m2 PHONG ([facility]) Systolic blood pressure 146 mm[Hg] 146 mm[Hg] A THENA ([facility]) Body weight 3700 [oz_av] 3700 [oz_av] PHONG ([facility]) Diastolic blood pressure 82 mm[Hg] 82 mm[Hg] PHONG ([facility]) Body height 70.3 [in_i] 70.3 [in_i] PHOGN ([facility]) Body mass index (BMI) [Ratio] 32.9 kg/m2 32.9 k g/m2 PHONG ([facility]) Systolic blood pressure 146 mm[Hg] 146 mm[Hg] A THENA ([facility]) Body weight 3700 [oz_av] 3700 [oz_av] PHONG ([facility]) Body weight 226.00 [lb_av] 226.00 [lb_av] RAY Claire ([facility], ) Body height 69 [in_i] 69 [in_i] CHANTAL ([facility], ) 5'9" Body surface area Derived from formula 2.18 m2 2.18 m2 MEDENT ([facility]) [place] body weight 160 [lb_av] 160 [lb_av] MEDEN T ([facility]) Body weight 102.514 kg 102.514 kg [facility] Body mass index (BMI) [Ratio] 33.4 kg/m2 33.4 k g/m2 [facility]) Diastolic blood pressure 88 mm[Hg] 88 mm[Hg] PHONG ([facility]) Diastolic blood pressure 102 mm[Hg] 102 mm[Hg] PHONG ([facility]) Body height 70.3 [in_i] 70.3 [in_i] PHONG ([facility]) Body mass index (BMI) [Ratio] 33.5 kg/m2 33.5 k g/m2 PHONG ([facility]) Systolic blood pressure 155 mm[Hg] 155 mm[Hg] A [facility] ([facility]) Systolic blood pressure 162 mm[Hg] 162 mm[Hg] A [facility] ([facility]) Body weight 3764 [oz_av] 3764 [oz_av] PHONG ([facility]) Systolic blood pressure 162 mm[Hg] 162 mm[Hg] A [facility] ([facility]) Body weight 3764 [oz_av] 3764 [oz_av] PHONG ([facility]) Diastolic blood pressure 88 mm[Hg] 88 mm[Hg] PHONG ([facility]) Diastolic blood pressure 102 mm[Hg] 102 mm[Hg] PHONG ([facility]) Body height 70.3 [in_i] 70.3 [in_i] PHONG ([facility]) Body mass index (BMI) [Ratio] 33.5 kg/m2 33.5 k g/m2 PHONG ([facility]) Systolic blood pressure 155 mm[Hg] 155 mm[Hg] A [facility] ([facility]) Diastolic blood pressure 88 mm[Hg] 88 mm[Hg] PHONG ([facility]) Diastolic blood pressure 102 mm[Hg] 102 mm[Hg] PHONG ([facility]) Body height 70.3 [in_i] 70.3 [in_i] PHONG ([facility]) Body mass index (BMI) [Ratio] 33.5 kg/m2 33.5 k g/m2 PHONG ([facility]) Systolic blood pressure 155 mm[Hg] 155 mm[Hg] A THENA ([facility]) Systolic blood pressure 162 mm[Hg] 162 mm[Hg] A THEN ([facility]) Body weight 3764 [oz_av] 3764 [oz_av] PHONG ([facility]) Diastolic blood pressure 88 mm[Hg] 88 mm[Hg] PHONG ([facility]) Diastolic blood pressure 102 mm[Hg] 102 mm[Hg] PHONG ([facility]) Body height 70.3 [in_i] 70.3 [in_i] PHONG ([facility]) Body mass index (BMI) [Ratio] 33.5 kg/m2 33.5 k g/m2 PHONG ([facility]) Systolic blood pressure 155 mm[Hg] 155 mm[Hg] A THENA ([facility]) Systolic blood pressure 162 mm[Hg] 162 mm[Hg] A THENA ([facility]) Body weight 3764 [oz_av] 3764 [oz_av] PHONG ([facility]) Body height 69 [in_i] 69 [in_i] [facility], [facility] 5'9" Body weight 226.00 [lb_av] 226.00 [lb_av] MEDEN T ([facility], ) Body mass index (BMI) [Ratio] 33.4 kg/m2 33.4 k g/m2 [facility], ) [place] body weight 160 [lb_av] 160 [lb_av] MEDEN T ([facility], ) Body weight 102.514 kg 102.514 kg [facility] ([facility], ) Body surface area Derived from formula 2.18 m2 2.18 m2 [facility] ([facility], ) Body height 69 [in_i] 69 [in_i] [facility], [facility] 5'9" Body weight 226.00 [lb_av] 226.00 [lb_av] MEDEN T ([facility]) Body mass index (BMI) [Ratio] 33.4 kg/m2 33.4 k g/m2 [facility] ([facility]) [place] body weight 160 [lb_av] 160 [lb_av] MEDEN T ([facility]) Body weight 102.514 kg 102.514 kg [facility] ([facility]) Body surface area Derived from formula 2.18 m2 2.18 m2 [facility] ([facility]) Diastolic blood pressure 88 mm[Hg] 88 mm[Hg] PHONG ([facility]) Body height 70.3 [in_i] 70.3 [in_i] PHONG ([facility]) Body mass index (BMI) [Ratio] 31.9 kg/m2 31.9 k g/m2 PHONG ([facility]) Systolic blood pressure 138 mm[Hg] 138 mm[Hg] A [facility] ([facility]) Body weight 3592 [oz_av] 3592 [oz_av] PHONG ([facility]) Diastolic blood pressure 88 mm[Hg] 88 mm[Hg] PHONG ([facility]) Body height 70.3 [in_i] 70.3 [in_i] PHONG ([facility]) Body mass index (BMI) [Ratio] 31.9 kg/m2 31.9 k g/m2 PHONG ([facility]) Systolic blood pressure 138 mm[Hg] 138 mm[Hg] A THENA ([facility]) Body weight 3592 [oz_av] 3592 [oz_av] PHONG ([facility]) Diastolic blood pressure 88 mm[Hg] 88 mm[Hg] PHONG ([facility]) Body height 70.3 [in_i] 70.3 [in_i] PHONG ([facility]) Body mass index (BMI) [Ratio] 31.9 kg/m2 31.9 k g/m2 PHONG ([facility]) Systolic blood pressure 138 mm[Hg] 138 mm[Hg] A [facility] ([facility]) Body weight 3592 [oz_av] 3592 [oz_av] PHONG ([facility]) Diastolic blood pressure 88 mm[Hg] 88 mm[Hg] PHONG ([facility]) Body height 70.3 [in_i] 70.3 [in_i] PHONG ([facility]) Body mass index (BMI) [Ratio] 31.9 kg/m2 31.9 k g/m2 PHONG ([facility]) Systolic blood pressure 138 mm[Hg] 138 mm[Hg] A [facility] ([facility]) Body weight 3592 [oz_av] 3592 [oz_av] HPONG ([facility]) Diastolic blood pressure 88 mm[Hg] 88 mm[Hg] PHONG ([facility]) Body height 70.3 [in_i] 70.3 [in_i] PHONG ([facility]) Body mass index (BMI) [Ratio] 31.9 kg/m2 31.9 k g/m2 PHONG ([facility]) Systolic blood pressure 138 mm[Hg] 138 mm[Hg] A THENA ([facility]) Body weight 3592 [oz_av] 3592 [oz_av] PHONG ([facility]) Body height 70.3 [in_i] 70.3 [in_i] PHONG ([facility]) Systolic blood pressure 155 mm[Hg] 155 mm[Hg] A THENA ([facility]) Systolic blood pressure 172 mm[Hg] 172 mm[Hg] A THENA ([facility]) Body weight 3577.6 [oz_av] 3577.6 [oz_av] ATHEN A ([facility]) Diastolic blood pressure 109 mm[Hg] 109 mm[Hg] PHONG ([facility]) Diastolic blood pressure 124 mm[Hg] 124 mm[Hg] PHONG ([facility]) Body mass index (BMI) [Ratio] 31.8 kg/m2 31.8 k g/m2 PHONG ([facility]) Diastolic blood pressure 109 mm[Hg] 109 mm[Hg] PHONG ([facility]) Diastolic blood pressure 124 mm[Hg] 124 mm[Hg] PHONG ([facility]) Body height 70.3 [in_i] 70.3 [in_i] PHONG ([facility]) Body mass index (BMI) [Ratio] 31.8 kg/m2 31.8 k g/m2 PHONG ([facility]) Systolic blood pressure 155 mm[Hg] 155 mm[Hg] A THENA ([facility]) Systolic blood pressure 172 mm[Hg] 172 mm[Hg] A THENA ([facility]) Body weight 3577.6 [oz_av] 3577.6 [oz_av] ATHEN A ([facility]) Diastolic blood pressure 109 mm[Hg] 109 mm[Hg] PHONG ([facility]) Diastolic blood pressure 124 mm[Hg] 124 mm[Hg] PHONG ([facility]) Body height 70.3 [in_i] 70.3 [in_i] PHONG ([facility]) Body mass index (BMI) [Ratio] 31.8 kg/m2 31.8 k g/m2 PHONG ([facility]) Systolic blood pressure 155 mm[Hg] 155 mm[Hg] A THENA ([facility]) Systolic blood pressure 172 mm[Hg] 172 mm[Hg] A THENA ([facility]) Body weight 3577.6 [oz_av] 3577.6 [oz_av] ATHEN A ([facility]) Diastolic blood pressure 109 mm[Hg] 109 mm[Hg] PHONG ([facility]) Diastolic blood pressure 124 mm[Hg] 124 mm[Hg] PHONG ([facility]) Body height 70.3 [in_i] 70.3 [in_i] PHONG ([facility]) Body mass index (BMI) [Ratio] 31.8 kg/m2 31.8 k g/m2 PHONG ([facility]) Systolic blood pressure 155 mm[Hg] 155 mm[Hg] A THENA ([facility]) Systolic blood pressure 172 mm[Hg] 172 mm[Hg] A THENA ([facility]) Body weight 3577.6 [oz_av] 3577.6 [oz_av] ATHEN A ([facility]) Diastolic blood pressure 109 mm[Hg] 109 mm[Hg] PHONG ([facility]) Diastolic blood pressure 124 mm[Hg] 124 mm[Hg] PHONG ([facility]) Body height 70.3 [in_i] 70.3 [in_i] PHONG ([facility]) Body mass index (BMI) [Ratio] 31.8 kg/m2 31.8 k g/m2 PHONG ([facility]) Systolic blood pressure 155 mm[Hg] 155 mm[Hg] A THENA ([facility]) Systolic blood pressure 172 mm[Hg] 172 mm[Hg] A [facility] ([facility]) Body weight 3577.6 [oz_av] 3577.6 [oz_av] ATHEN A ([facility]) Diastolic blood pressure 109 mm[Hg] 109 mm[Hg] PHONG ([facility]) Diastolic blood pressure 124 mm[Hg] 124 mm[Hg] PHONG ([facility]) Body height 70.3 [in_i] 70.3 [in_i] PHONG ([facility]) Body mass index (BMI) [Ratio] 31.8 kg/m2 31.8 k g/m2 PHONG ([facility]) Systolic blood pressure 155 mm[Hg] 155 mm[Hg] A THENA ([facility]) Systolic blood pressure 172 mm[Hg] 172 mm[Hg] A THENA ([facility]) Body weight 3577.6 [oz_av] 3577.6 [oz_av] ATHEN A ([facility]) Diastolic blood pressure 109 mm[Hg] 109 mm[Hg] PHONG ([facility]) Diastolic blood pressure 124 mm[Hg] 124 mm[Hg] PHONG ([facility]) Body height 70.3 [in_i] 70.3 [in_i] PHONG ([facility]) Body mass index (BMI) [Ratio] 31.8 kg/m2 31.8 k g/m2 PHONG ([facility]) Systolic blood pressure 155 mm[Hg] 155 mm[Hg] A THENA ([facility]) Systolic blood pressure 172 mm[Hg] 172 mm[Hg] A THENA ([facility]) Body weight 3577.6 [oz_av] 3577.6 [oz_av] JOSÉ A ([facility]) Patient Treatment Plan of Care Planned Activity Planned Date Details Description Data Source (s) Tamsulosin hydrochloride 0.4 MG Oral Capsule PHONG ([facility]) Sulfamethoxazole 800 MG / Trimethoprim 160 MG Oral Tablet PHONG ([facility]) Prednisone 10 MG Oral Tablet PHONG ([facility]) Metoprolol Tartrate 50 MG Oral Tablet PHONG ([facility]) 24 HR metoprolol succinate 25 MG Extended Release Oral Tablet PHONG ([facility]) Methocarbamol 750 MG Oral Tablet PHONG ([facility]) Losartan Potassium 50 MG Oral Tablet PHONG ([facility]) Doxycycline Monohydrate 100 MG Oral Capsule PHONG ([facility]) Docusate Sodium 100 MG Oral Capsule [DOK] PHONG ([facility]) 120 ACTUAT Albuterol 0.1 MG/ACTUAT / Ipr atropium [place] 0.02 MG/ACTUAT Metered Dose Inhaler [Combivent] PHONG ([facility]) Clindamycin 150 MG Oral Capsule PHONG ([facility]) cefdinir 300 MG Oral Capsule PHONG ([facility]) Amoxicillin 500 MG Oral Capsule PHONG ([facility]) albuterol sulfate HFA 90 mcg/actuation aerosol inhaler PHONG ([facility]) Tamsulosin hydrochloride 0.4 MG Oral Capsule PHONG ([facility]) Sulfamethoxazole 800 MG / Trimethoprim 160 MG Oral Tablet PHONG ([facility]) Prednisone 10 MG Oral Tablet PHONG ([facility]) Metoprolol Tartrate 50 MG Oral Tablet PHONG ([facility]) 24 HR metoprolol succinate 25 MG Extended Release Oral Tablet PHONG ([facility]) Methocarbamol 750 MG Oral Tablet PHONG ([facility]) Losartan Potassium 50 MG Oral Tablet PHONG ([facility]) Docusate Sodium 100 MG Oral Capsule [DOK] PHONG ([facility]) 120 ACTUAT Albuterol 0.1 MG/ACTUAT / Ipr atropium [place] 0.02 MG/ACTUAT Metered Dose Inhaler [Combivent] PHONG ([facility]) Clindamycin 150 MG Oral Capsule PHONG ([facility]) cefdinir 300 MG Oral Capsule PHONG ([facility]) Amoxicillin 500 MG Oral Capsule PHONG ([facility]) albuterol sulfate HFA 90 mcg/actuation aerosol inhaler PHONG ([facility]) Tamsulosin hydrochloride 0.4 MG Oral Capsule PHONG ([facility]) Sulfamethoxazole 800 MG / Trimethoprim 160 MG Oral Tablet PHONG ([facility]) Prednisone 10 MG Oral Tablet PHONG ([facility]) Metoprolol Tartrate 50 MG Oral Tablet PHONG ([facility]) 24 HR metoprolol succinate 25 MG Extended Release Oral Tablet PHONG ([facility]) Methocarbamol 750 MG Oral Tablet PHONG ([facility]) Losartan Potassium 50 MG Oral Tablet PHONG ([facility]) Docusate Sodium 100 MG Oral Capsule [DOK] PHONG ([facility]) 120 ACTUAT Albuterol 0.1 MG/ACTUAT / Ipr atropium [place] 0.02 MG/ACTUAT Metered Dose Inhaler [Combivent] PHONG ([facility]) Clindamycin 150 MG Oral Capsule PHONG ([facility]) cefdinir 300 MG Oral Capsule PHONG ([facility]) Amoxicillin 500 MG Oral Capsule PHONG ([facility]) albuterol sulfate HFA 90 mcg/actuation aerosol inhaler PHONG ([facility]) Tamsulosin hydrochloride 0.4 MG Oral Capsule PHONG ([facility]) Sulfamethoxazole 800 MG / Trimethoprim 160 MG Oral Tablet PHONG ([facility]) Prednisone 10 MG Oral Tablet PHONG ([facility]) Metoprolol Tartrate 50 MG Oral Tablet PHONG ([facility]) Methocarbamol 750 MG Oral Tablet PHONG ([facility]) Docusate Sodium 100 MG Oral Capsule [DOK] PHONG ([facility]) 120 ACTUAT Albuterol 0.1 MG/ACTUAT / Ipr atropium [place] 0.02 MG/ACTUAT Metered Dose Inhaler [Combivent] PHONG ([facility]) Clindamycin 150 MG Oral Capsule PHONG ([facility]) cefdinir 300 MG Oral Capsule PHONG ([facility]) Amoxicillin 500 MG Oral Capsule PHONG ([facility]) albuterol sulfate HFA 90 mcg/actuation aerosol inhaler PHONG ([facility]) Tamsulosin hydrochloride 0.4 MG Oral Capsule PHONG ([facility]) Sulfamethoxazole 800 MG / Trimethoprim 160 MG Oral Tablet PHONG ([facility]) Prednisone 10 MG Oral Tablet PHONG ([facility]) Metoprolol Tartrate 50 MG Oral Tablet PHONG ([facility]) Methocarbamol 750 MG Oral Tablet PHONG ([facility]) Doxycycline Monohydrate 100 MG Oral Capsule PHONG ([facility]) Docusate Sodium 100 MG Oral Capsule [DOK] PHONG ([facility]) Clindamycin 150 MG Oral Capsule PHONG ([facility]) cefdinir 300 MG Oral Capsule PHONG ([facility]) Amoxicillin 500 MG Oral Capsule PHONG ([facility]) Tamsulosin hydrochloride 0.4 MG Oral Capsule PHONG ([facility]) Sulfamethoxazole 800 MG / Trimethoprim 160 MG Oral Tablet PHONG ([facility]) Prednisone 10 MG Oral Tablet PHONG ([facility]) Metoprolol Tartrate 50 MG Oral Tablet PHONG ([facility]) Methocarbamol 750 MG Oral Tablet PHONG ([facility]) Doxycycline Monohydrate 100 MG Oral Capsule PHONG ([facility]) Docusate Sodium 100 MG Oral Capsule [DOK] PHONG ([facility]) Clindamycin 150 MG Oral Capsule PHONG ([facility]) cefdinir 300 MG Oral Capsule PHONG ([facility]) Amoxicillin 500 MG Oral Capsule PHONG ([facility]) Tamsulosin hydrochloride 0.4 MG Oral Capsule PHONG ([facility]) Sulfamethoxazole 800 MG / Trimethoprim 160 MG Oral Tablet PHONG ([facility]) Prednisone 10 MG Oral Tablet PHONG ([facility]) Metoprolol Tartrate 50 MG Oral Tablet PHONG ([facility]) Methocarbamol 750 MG Oral Tablet PHONG ([facility]) Doxycycline Monohydrate 100 MG Oral Capsule PHONG ([facility]) Docusate Sodium 100 MG Oral Capsule [DOK] PHONG ([facility]) Clindamycin 150 MG Oral Capsule PHONG ([facility]) cefdinir 300 MG Oral Capsule PHONG ([facility]) Amoxicillin 500 MG Oral Capsule PHONG ([facility])
[2021-09-23] MEDS ORDERED: CIPRODEX OTIC SUSP 7.5ML As Ordered ONE (07:13)
[2021-09-23] MEDS ORDERED: PHENYLEPHRINE 0.5% NASAL SPRAY 15 ML As Ordered ONE (07:14)
[2021-09-23] MEDS ORDERED: fentaNYL 100 MCG/2 ML INJECTION (J3010) As Ordered ONE (07:15)
[2021-09-23] MEDS ORDERED: MIDAZOLAM INJ 2MG/2ML VIAL (J2250 PER 1MG) As Ordered ONE (07:15)
[2021-09-23] MEDS ORDERED: dexameTHASONE 4 MG/ML 1ML VIAL (J1100 PER 1MG) As Ordered ONE (07:44)
[2021-09-23] MEDS ORDERED: ACETAMINOPHEN 1000MG 100ML IV BTL (OFIRMEV) (J0131 PER 10MG) As Ordered ONE (07:44)
[2021-09-23] MEDS ORDERED: LIDOCAINE 2% 100MG/5ML SDV (FOR ANES.) As Ordered ONE (07:44)
[2021-09-23] MEDS ORDERED: ONDANSETRON 4MG/2ML VIAL As Ordered ONE (07:44)
[2021-09-23] MEDS ORDERED: propofoL 200 MG/20 ML VIAL As Ordered ONE ×2 (07:44→07:49)
[2021-09-23] MEDS ORDERED: PERCOCET 5MG/325MG TAB PO PRN (08:10)
[2021-09-23] MEDS ORDERED: LR 1,000 ML IV SCH ×2 (08:10→08:15)
[2021-09-23] MEDS ORDERED: fentaNYL 100 MCG/2 ML INJECTION (J3010) IV PRN (08:10)
[2021-09-23] MEDS ORDERED: ONDANSETRON 4MG/2ML VIAL IV PRN (08:10)
[2021-09-23] MEDS ORDERED: METOCLOPRAMIDE INJ 10MG/2ML VIAL (J2765 PER 1) IV PRN (08:10)
[2021-09-23 09:15] VITALS: BP 139/71
--- NOTE | 2021-09-24 12:04 | RO ---
OPERATIVE NOTE DATE OF OPERATION: 09/23/2021 PREOPERATIVE DIAGNOSIS: Right eustachian tube dysfunction and right chronic serous otitis media. POSTOPERATIVE DIAGNOSIS: Right eustachian tube dysfunction and right chronic serous otitis media. PROCEDURE PERFORMED: Right tympanostomy using the Triune tube. SURGEON: Oc Cee MD. 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 CLINICAL PREAMBLE: This 41-year-old man presented to the office complaining of a fullness sensation in the ear. Physical examination revealed retraction of the right tympanic membrane. CT sinuses revealed fluid in the right mastoid air cells. Management options including right tympanostomy have been discussed. The patient understood and consented to the procedure. OR NARRATION: Patient was identified in preoperative holding and brought to the operating room in stable condition. In the supine position on the operating table, patient received general anesthesia followed by laryngeal mask airway management. Patient was prepped and draped in the usual fashion for the procedure. Patient's head was turned to the left side to expose the right ear. Ear speculum was inserted, and cerumen was debrided. The right tympanic membrane was found to be intact with evidence of serous fluid in the right middle ear cleft. Myringotomy incision was made over the anterior-inferior quadrant of the tympanic membrane. Clear serous fluid was suctioned clear from the right middle ear cleft. The Triune tympanostomy was then inserted into the right tympanostomy site. Ciprofloxacin with dexamethasone eardrops were then used to the right ear canal. Cotton ball was then used to occlude the ear canal. At the end of the procedure, sponge and instrument counts were correct. No complications were seen. Estimated blood loss less than 1 mL. General anesthesia was reversed, and the patient was awakened and brought to the recovery room in stable condition.
== END 2021-09-23 09:49 | disposition home or self-care (01) ==
LOC: M SDC 05:59
PROVIDERS: ATTEND Otolaryngology
DX: H69.91 Unspecified Eustachian tube disorder, right ear (principal); H65.21 Chronic serous otitis media, right ear; I10 Essential (primary) hypertension; E78.5 Hyperlipidemia, unspecified; J44.9 Chronic obstructive pulmonary disease, unspecified; F17.218 Nicotine dependence, cigarettes, with other nicotine-induced disorders; Z79.899 Other long term (current) drug therapy; Z91.018 Allergy to other foods; Z88.8 Allergy status to other drugs, medicaments and biological substances
CPT/HCPCS: 69436; J0131; J1100; J2250; J2405; J3010

== ENCOUNTER → 2023-04-05 | Outpatient (CLI) | payer OTHER ==
[~2023-04-05] MED LIST changes: +FLUT50SP17; -FLUTISP; +LOSA100T46 PO; -LOSA100T50 PO; +METO1TAB7 PO
[2023-04-05 16:03] LABS: BASO # 0.1 10^3/uL (0.0-0.2); BASO % 0.3 % (0.0-1.0); EOS % 0.2 % (0.0-3.0); HEMATOCRIT 51.1 % (42.0-52.0); HEMOGLOBIN 17.7 g/dl (13.5-17.5); LYMPH % 11.1 % (24.0-44.0); MEAN CORPUSCULAR HEMOGLOBIN 33.3 pg (27.0-33.0); MEAN CORPUSCULAR HGB CONC 34.6 g/dl (32.0-36.5); MEAN CORPUSCULAR VOLUME 96.1 fl (80.0-96.0); MONO # 1.5 10^3/uL (0.0-0.8); MONO % 8.1 % (2.0-8.0); NEUTROPHILS # 14.2 10^3/uL (1.5-8.5); NEUTROPHILS % 79.8 % (36.0-66.0); PLATELET COUNT, AUTOMATED 300 10^3/uL (150-450); RED BLOOD COUNT 5.32 10^6/uL (4.30-6.10); WHITE BLOOD COUNT 17.8 10^3/uL (4.0-10.0)
[2023-04-05 16:32] LABS: ALBUMIN 3.8 G/DL (3.2-5.2); ALKALINE PHOSPHATASE 92 U/L (46-116); ALT/SGPT 75 U/L (7.0-40); AST/SGOT 47 U/L (<34); BILIRUBIN,TOTAL 0.4 MG/DL (0.3-1.2); BLOOD UREA NITROGEN 9 MG/DL (9-23); CALCIUM LEVEL 9.4 MG/DL (8.5-10.1); CARBON DIOXIDE LEVEL 26 MMOL/L (20-31); CHLORIDE LEVEL 104 MMOL/L (98-107); CHOLESTEROL LEVEL 199 MG/DL (<200); CHOLESTEROL RISK RATIO 3.32 (<5); CREATININE FOR GFR 0.63 MG/DL (0.70-1.30); GLOMERULAR FILTRATION RATE > 60.0 (>60); GLUCOSE, FASTING 106 MG/DL (60-100); HDL CHOLESTEROL 59.9 MG/DL (>40); LDL CHOLESTEROL 125.3 MG/DL (<100); NON-HDL-C 139.1 MG/DL; POTASSIUM SERUM 4.2 MMOL/L (3.5-5.1); SODIUM LEVEL 138 MMOL/L (136-145); TOTAL PROTEIN 7.9 G/DL (5.7-8.2); TRIGLYCERIDES LEVEL 69 MG/DL (<150)
[2023-04-05 16:33] LABS: VITAMIN B12 LEVEL 618 PG/ML (211-911)
[2023-04-05 17:06] LABS: HEMOGLOBIN A1c 5.4 % (4.0-6.0)
== END ==
LOC: M LAB 15:38
PROVIDERS: ATTEND Physician Assistant Medical
DX: E78.2 Mixed hyperlipidemia (principal)

== ENCOUNTER → 2024-06-14 | Outpatient (CLI) | payer OTHER ==
[~2024-06-14] MED LIST changes: -AMIT25TA17 PO; +AMIT25TA19 PO; +DOXY-323 PO; -DOXY-443 PO; -FLUT50SP17; +FLUTISP
[2024-06-14 18:12] LABS: ALKALINE PHOSPHATASE 124 U/L (46-116); ALT/SGPT 86 U/L (7.0-40); AST/SGOT 87 U/L (<34); BILIRUBIN,TOTAL 0.5 MG/DL (0.3-1.2); BLOOD UREA NITROGEN 6 MG/DL (9-23); CALCIUM LEVEL 9.4 MG/DL (8.5-10.1); CARBON DIOXIDE LEVEL 28 MMOL/L (20-31); CHLORIDE LEVEL 105 MMOL/L (98-107); CHOLESTEROL LEVEL 155 MG/DL (<200); CHOLESTEROL RISK RATIO 2.64 (<5); CREATININE FOR GFR 0.68 MG/DL (0.70-1.30); GLOMERULAR FILTRATION RATE > 60.0 (>60); GLUCOSE, FASTING 97 MG/DL (60-100); HDL CHOLESTEROL 58.7 MG/DL (>40); LDL CHOLESTEROL 81.1 MG/DL (<100); NON-HDL-C 96.3 MG/DL; POTASSIUM SERUM 4.7 MMOL/L (3.5-5.1); SODIUM LEVEL 138 MMOL/L (136-145); TOTAL PROTEIN 7.2 G/DL (5.7-8.2); TRIGLYCERIDES LEVEL 76 MG/DL (<150)
[2024-06-14 18:14] LABS: BASO # 0.1 10^3/uL (0.0-0.2); BASO % 0.7 % (0.0-1.0); EOS # 0.2 10^3/uL (0.0-0.5); EOS % 1.9 % (0.0-3.0); HEMATOCRIT 47.7 % (42.0-52.0); HEMOGLOBIN 15.9 g/dl (13.5-17.5); LYMPH % 20.9 % (24.0-44.0); MEAN CORPUSCULAR HEMOGLOBIN 33.4 pg (27.0-33.0); MEAN CORPUSCULAR HGB CONC 33.3 g/dl (32.0-36.5); MEAN CORPUSCULAR VOLUME 100.2 fl (80.0-96.0); MONO % 10.9 % (2.0-8.0); NEUTROPHILS # 6.2 10^3/uL (1.5-8.5); NEUTROPHILS % 65.1 % (36.0-66.0); PLATELET COUNT, AUTOMATED 292 10^3/uL (150-450); RED BLOOD COUNT 4.76 10^6/uL (4.30-6.10); WHITE BLOOD COUNT 9.5 10^3/uL (4.0-10.0)
[2024-06-14 18:16] LABS: THYROID STIMULATING HORMONE 0.919 uIU/ML (0.55-4.78)
[2024-06-14 18:17] LABS: FREE T4 0.88 NG/DL (0.89-1.76)
[2024-06-14 18:37] LABS: HEMOGLOBIN A1c 5.1 % (4.0-6.0)
== END ==
LOC: M PLALAB 14:51
PROVIDERS: ATTEND Nurse Practitioner Family
DX: I10 Essential (primary) hypertension (principal)

== ENCOUNTER → 2024-07-18 | Outpatient (CLI) | payer OTHER | LOC: M PLAIMG 15:38 | PROVIDERS: ATTEND Nurse Practitioner Family | DX: E27.8 Other specified disorders of adrenal gland (principal) ==

== ENCOUNTER → 2024-08-24 | Outpatient (CLI) | payer OTHER ==
[~2024-08-24] MED LIST changes: -DOXY-323 PO; +DOXY-441 PO
== END ==
LOC: M RAD 15:19
PROVIDERS: ATTEND Otolaryngology
DX: J32.0 Chronic maxillary sinusitis (principal)

== ENCOUNTER → 2024-12-28 | Outpatient (CLI) | payer OTHER ==
[~2024-12-28] MED LIST changes: +PROHANCE 279.3MG/ML 15ML VIAL ONE
== END ==
LOC: M PLAIMG 14:46
PROVIDERS: ATTEND Nurse Practitioner Family
DX: K86.9 Disease of pancreas, unspecified (principal)

== ENCOUNTER 2025-02-26 15:14 | Inpatient (IN) | payer OTHER ==
[~2025-02-26] VITALS: Ht 175.3 cm; Wt 83.3 kg
[2025-02-26] MEDS: NS (Normal Saline) 0.9% 1,000 ML IV SCH (01:30)
[~2025-02-26 15:14] MED LIST changes: -FLOM0.4C39 PO; -PROHANCE 279.3MG/ML 15ML VIAL ONE; +TAMS-18 PO
[2025-02-26] MEDS ORDERED: PANTOPRAZOLE 40MG VIAL IV ONE (16:00)
[2025-02-26] MEDS: PANTOPRAZOLE 40MG VIAL IV ONE (16:31)
[2025-02-26 16:47] LABS: BASO % 0.2 % (0.0-1.0); EOS % 0.1 % (0.0-3.0); HEMOGLOBIN 10.7 g/dl (13.5-17.5); LYMPH # 2.5 10^3/uL (1.5-5.0); LYMPH % 15.4 % (24.0-44.0); MEAN CORPUSCULAR HEMOGLOBIN 35.1 pg (27.0-33.0); MEAN CORPUSCULAR HGB CONC 35.7 g/dl (32.0-36.5); MEAN CORPUSCULAR VOLUME 98.4 fl (80.0-96.0); MONO # 1.4 10^3/uL (0.0-0.8); MONO % 8.6 % (2.0-8.0); NEUTROPHILS # 12.2 10^3/uL (1.5-8.5); PLATELET COUNT, AUTOMATED 281 10^3/uL (150-450); RED BLOOD COUNT 3.05 10^6/uL (4.30-6.10); WHITE BLOOD COUNT 16.3 10^3/uL (4.0-10.0)
[2025-02-26 16:56] LABS: INR 0.94; PARTIAL THROMBOPLASTIN TIME 25.6 SECONDS (24.8-34.2); PROTHROMBIN TIME 12.9 SECONDS (12.5-14.5)
[2025-02-26 17:09] LABS: LIPASE 24 U/L (12-53)
[2025-02-26 17:10] LABS: ETHYL ALCOHOL (ETHANOL) 0.008 % (0.000-0.010)
[2025-02-26 17:11] LABS: ALBUMIN 1.9 G/DL (3.2-5.2); ALKALINE PHOSPHATASE 116 U/L (40-129); ALT/SGPT 66 U/L (7.0-40); AST/SGOT 82 U/L (<34); BILIRUBIN,DIRECT 0.4 MG/DL (<0.4); BILIRUBIN,TOTAL 0.9 MG/DL (0.3-1.2); BLOOD UREA NITROGEN 22 MG/DL (9-23); CALCIUM LEVEL 7.7 MG/DL (8.5-10.1); CARBON DIOXIDE LEVEL 26 MMOL/L (20-31); CHLORIDE LEVEL 102 MMOL/L (98-107); CREATININE FOR GFR 0.43 MG/DL (0.70-1.30); GLOMERULAR FILTRATION RATE > 60.0 (>60); GLUCOSE, FASTING 102 MG/DL (60-100); POTASSIUM SERUM 3.9 MMOL/L (3.5-5.1); SODIUM LEVEL 132 MMOL/L (136-145); TOTAL PROTEIN 5.6 G/DL (5.7-8.2)
[2025-02-26] MEDS ORDERED: ISOVUE-370 76% 100ML VIAL As Ordered ONE (17:22)
[2025-02-26] MEDS ORDERED: DOXY100C3 PO (19:49)
[2025-02-26] MEDS ORDERED: HYDR-3719 PO (19:49)
[2025-02-26] MEDS ORDERED: TREL1AER PO (19:49)
[2025-02-26] MEDS ORDERED: PROA1AER2 INH (19:49)
[2025-02-26] MEDS ORDERED: BENZ-18 PO (19:49)
[2025-02-26] MEDS ORDERED: METO1TAB33 PO (19:49)
[2025-02-26] MEDS ORDERED: LOSA50TA28 PO (19:49)
[2025-02-26] MEDS ORDERED: HOME MED LIST COMPLETE! XX SCH (19:55)
[2025-02-26 20:20] LABS: HEMATOCRIT 28.7 % (42.0-52.0); HEMOGLOBIN 10.1 g/dl (13.5-17.5)
[2025-02-26] MEDS ORDERED: LORazepam 2 MG TAB PO PRN (20:30)
[2025-02-26] MEDS: THIAMINE 100 MG TAB PO SCH (21:09)
[2025-02-26] MEDS: OCTREOTIDE ACETATE 100MCG/ML VIAL **IV ADMINISTRATION ONLY IV ONE (21:12)
[2025-02-26] MEDS: OCTREOTIDE ACETATE 1,200 MCG in NS 238.8 ML IV SCH (21:13)
[2025-02-26] MEDS: NICOTINE 21MG/24HR 1 EA TRANSDERMAL TD ONE (22:11)
[2025-02-27] VITALS (52 sets, daily range): BP systolic 81–138; BP diastolic 44–92; TEMP 97.7–99.5; O2SAT 97–100
[2025-02-27] MEDS: NS (Normal Saline) 0.9% 1,000 ML IV ONE ×2 (01:10→01:15)
[2025-02-27] MEDS ORDERED: NOREPINEPHRINE 4MG IN D5 250ML 4 MG in IV 1 EA IV SCH ×2 (01:15→03:50)
[2025-02-27] MEDS: EPINEPHrine INJ 1 MG/ML 1ML AMP IM STA ×3 (01:27→03:10)
[2025-02-27] MEDS: methylPREDNISolone 125MG 2ML VIAL IV ONE (01:54)
[2025-02-27 01:55] LABS: BASO % 0.1 % (0.0-1.0); EOS # 0.1 10^3/uL (0.0-0.5); EOS % 0.5 % (0.0-3.0); HEMATOCRIT 23.6 % (42.0-52.0); HEMOGLOBIN 8.1 g/dl (13.5-17.5); LYMPH # 4.5 10^3/uL (1.5-5.0); LYMPH % 32.9 % (24.0-44.0); MEAN CORPUSCULAR HEMOGLOBIN 35.5 pg (27.0-33.0); MEAN CORPUSCULAR HGB CONC 34.3 g/dl (32.0-36.5); MEAN CORPUSCULAR VOLUME 103.5 fl (80.0-96.0); MONO # 1.4 10^3/uL (0.0-0.8); MONO % 10.4 % (2.0-8.0); NEUTROPHILS # 7.5 10^3/uL (1.5-8.5); NEUTROPHILS % 55.2 % (36.0-66.0); PLATELET COUNT, AUTOMATED 275 10^3/uL (150-450); RED BLOOD COUNT 2.28 10^6/uL (4.30-6.10); WHITE BLOOD COUNT 13.5 10^3/uL (4.0-10.0)
[2025-02-27 02:15] LABS: CK-MB VALUE MASS 1.7 NG/ML (<3.6)
[2025-02-27 02:19] LABS: MB/CK RELATIVE INDEX 2.39 (< OR =4)
[2025-02-27] MEDS: EPINEPHrine HCL INJ 1 MG in D5W 240 ML IV SCH (02:34)
[2025-02-27] MEDS ORDERED: LORazepam 2 MG/ML 1ML VIAL IV PRN (03:50)
[2025-02-27] MEDS: PANTOPRAZOLE SODIUM 40 MG in DEXTROSE 5% (D5W) ADV/MINI-BAG 50 ML IV SCH (04:27)
[2025-02-27] MEDS ORDERED: FOLIC ACID 1MG TAB PO SCH (09:00)
[2025-02-27] MEDS ORDERED: MULTIVITAMINS/MINERALS THERAP 1 TAB PO SCH (09:00)
[2025-02-27] MEDS ORDERED: propofoL 500 MG/50 ML VIAL As Ordered ONE (09:21)
[2025-02-27] MEDS ORDERED: propofoL 200 MG/20 ML VIAL As Ordered ONE (09:24)
[2025-02-27] MEDS ORDERED: LIDOCAINE 2% 100MG/5ML SDV (FOR ANES.) As Ordered ONE (09:24)
[2025-02-27] MEDS ORDERED: fentaNYL 100 MCG/2 ML INJECTION As Ordered ONE (09:25)
[2025-02-27] MEDS ORDERED: ESMOLOL INJ 100MG/10ML VIAL As Ordered ONE (10:18)
[2025-02-27] MEDS ORDERED: ROCURONIUM BROMIDE 50MG/5ML VIAL As Ordered ONE (10:31)
[2025-02-27] MEDS: EPINEPHrine 1MG/ML INJ 30ML MD-VIAL As Ordered ONE (10:38)
[2025-02-27] MEDS: EPINEPHrine 1MG/10ML SYRINGE 1.5IN As Ordered ONE (10:42)
[2025-02-27] MEDS ORDERED: PHENYLephrine 500MCG 5ML (100MCG/ML) SYRINGE As Ordered ONE (10:45)
[2025-02-27] MEDS ORDERED: ONDANSETRON 4MG 2ML VIAL As Ordered ONE (10:54)
[2025-02-27 12:57] LABS: BASO % 0.1 % (0.0-1.0); HEMATOCRIT 26.5 % (42.0-52.0); HEMOGLOBIN 9.4 g/dl (13.5-17.5); LYMPH # 1.1 10^3/uL (1.5-5.0); LYMPH % 7.5 % (24.0-44.0); MEAN CORPUSCULAR HGB CONC 35.5 g/dl (32.0-36.5); MONO # 0.4 10^3/uL (0.0-0.8); MONO % 2.7 % (2.0-8.0); NEUTROPHILS # 12.7 10^3/uL (1.5-8.5); NEUTROPHILS % 88.9 % (36.0-66.0); PLATELET COUNT, AUTOMATED 180 10^3/uL (150-450); RED BLOOD COUNT 2.85 10^6/uL (4.30-6.10); WHITE BLOOD COUNT 14.2 10^3/uL (4.0-10.0)
[2025-02-27 17:23] LABS: BASO % 0.1 % (0.0-1.0); HEMATOCRIT 24.9 % (42.0-52.0); HEMOGLOBIN 8.6 g/dl (13.5-17.5); LYMPH # 1.6 10^3/uL (1.5-5.0); LYMPH % 9.8 % (24.0-44.0); MEAN CORPUSCULAR HEMOGLOBIN 32.2 pg (27.0-33.0); MEAN CORPUSCULAR HGB CONC 34.5 g/dl (32.0-36.5); MEAN CORPUSCULAR VOLUME 93.3 fl (80.0-96.0); MONO # 0.8 10^3/uL (0.0-0.8); MONO % 5.1 % (2.0-8.0); NEUTROPHILS # 13.9 10^3/uL (1.5-8.5); NEUTROPHILS % 84.4 % (36.0-66.0); PLATELET COUNT, AUTOMATED 167 10^3/uL (150-450); RED BLOOD COUNT 2.67 10^6/uL (4.30-6.10); WHITE BLOOD COUNT 16.5 10^3/uL (4.0-10.0)
[2025-02-27] MEDS ORDERED: BENZONATATE 100MG CAPSULE PO PRN (17:50)
[2025-02-27] MEDS: GLYCOPYRROLATE INJ 0.2 MG/ML 2 ML VIAL NEB SCH (19:27)
[2025-02-27] MEDS: FORMOTEROL FUMARATE 20 MCG/2 ML INHALATION SOLUTION (PERFOROMIST) INH SCH (19:27)
[2025-02-27] MEDS: BUDESONIDE 0.5 MG/2 ML INHALATION SUSPENSION NEB SCH (19:27)
[2025-02-27] MEDS: NICOTINE 21MG/24HR 1 EA TRANSDERMAL TD SCH (21:11)
[2025-02-28] VITALS (44 sets, daily range): BP systolic 91–152; BP diastolic 53–98; TEMP 97.6–98.7; O2SAT 93–100
[2025-02-28 01:09] LABS: BASO % 0.1 % (0.0-1.0); HEMATOCRIT 24.8 % (42.0-52.0); HEMOGLOBIN 8.7 g/dl (13.5-17.5); LYMPH # 2.1 10^3/uL (1.5-5.0); LYMPH % 11.7 % (24.0-44.0); MEAN CORPUSCULAR HEMOGLOBIN 32.8 pg (27.0-33.0); MEAN CORPUSCULAR HGB CONC 35.1 g/dl (32.0-36.5); MEAN CORPUSCULAR VOLUME 93.6 fl (80.0-96.0); MONO # 1.2 10^3/uL (0.0-0.8); MONO % 6.5 % (2.0-8.0); NEUTROPHILS # 14.3 10^3/uL (1.5-8.5); PLATELET COUNT, AUTOMATED 177 10^3/uL (150-450); RED BLOOD COUNT 2.65 10^6/uL (4.30-6.10); WHITE BLOOD COUNT 17.7 10^3/uL (4.0-10.0)
[2025-02-28] MEDS: CETIRIZINE (ZyrTEC) 10 MG TAB PO SCH (09:00)
[2025-02-28] MEDS: METOPROLOL SUCC (TopROL XL) 100MG *XL* TAB PO SCH (09:00)
[2025-02-28] MEDS: LOSARTAN 50MG TABLET PO SCH (09:00)
[2025-02-28 09:34] LABS: BASO % 0.1 % (0.0-1.0); EOS % 0.1 % (0.0-3.0); HEMATOCRIT 24.3 % (42.0-52.0); HEMOGLOBIN 8.1 g/dl (13.5-17.5); LYMPH # 2.4 10^3/uL (1.5-5.0); LYMPH % 18.1 % (24.0-44.0); MEAN CORPUSCULAR HGB CONC 33.3 g/dl (32.0-36.5); MONO # 0.9 10^3/uL (0.0-0.8); MONO % 6.7 % (2.0-8.0); NEUTROPHILS # 9.8 10^3/uL (1.5-8.5); NEUTROPHILS % 74.1 % (36.0-66.0); PLATELET COUNT, AUTOMATED 179 10^3/uL (150-450); RED BLOOD COUNT 2.53 10^6/uL (4.30-6.10); WHITE BLOOD COUNT 13.2 10^3/uL (4.0-10.0)
[2025-02-28] MEDS: METOPROLOL TART 25 MG TABLET PO SCH (12:00)
[2025-02-28] MEDS: MIDODRINE 2.5 MG TAB PO SCH (12:00)
[2025-02-28 14:54] LABS: HEMATOCRIT 19.2 % (42.0-52.0); HEMOGLOBIN 6.6 g/dl (13.5-17.5)
[2025-02-28] MEDS ORDERED: fentaNYL 100 MCG/2 ML INJECTION IV PRN (15:30)
[2025-02-28] MEDS: chlordiazePOXIDE 25 MG CAP PO SCH (16:00)
[2025-02-28] MEDS: MIDAZOLAM INJ 2MG/2ML VIAL IV PRN (16:17)
[2025-02-28] MEDS: LIDOCAINE 1% MDV 20ML VIAL SC ONE (17:00)
[2025-02-28] MEDS: ISOVUE-300 61% 100ML VIAL IV ONE (17:01)
[2025-02-28] MEDS: NS (Normal Saline) 0.9% 1,000 ML IV SCH ×2 (17:06→17:35)
[2025-02-28] MEDS ORDERED: zolPIDEM TARTRATE 5 MG TAB PO ONE (21:00)
[2025-02-28] MEDS: PERCOCET 5MG/325MG TAB PO PRN (21:26)
[2025-03-01] VITALS (11 sets, daily range): BP systolic 137–178; BP diastolic 83–96; TEMP 97.4–98.8; O2SAT 99–100
[2025-03-01 06:07] LABS: HEMATOCRIT 21.7 % (42.0-52.0); HEMOGLOBIN 7.5 g/dl (13.5-17.5); MEAN CORPUSCULAR HEMOGLOBIN 32.5 pg (27.0-33.0); MEAN CORPUSCULAR HGB CONC 34.6 g/dl (32.0-36.5); MEAN CORPUSCULAR VOLUME 93.9 fl (80.0-96.0); PLATELET COUNT, AUTOMATED 148 10^3/uL (150-450); RED BLOOD COUNT 2.31 10^6/uL (4.30-6.10)
[2025-03-01 06:53] LABS: ALBUMIN 1.6 G/DL (3.2-5.2); ALKALINE PHOSPHATASE 54 U/L (40-129); ALT/SGPT 45 U/L (7.0-40); AST/SGOT 41 U/L (<34); BILIRUBIN,DIRECT 0.3 MG/DL (<0.4); BILIRUBIN,TOTAL 0.6 MG/DL (0.3-1.2); BLOOD UREA NITROGEN 29 MG/DL (9-23); CALCIUM LEVEL 6.9 MG/DL (8.5-10.1); CARBON DIOXIDE LEVEL 24 MMOL/L (20-31); CHLORIDE LEVEL 111 MMOL/L (98-107); CREATININE FOR GFR 0.62 MG/DL (0.70-1.30); GLOMERULAR FILTRATION RATE > 90.0 (>60); GLUCOSE, FASTING 108 MG/DL (60-100); POTASSIUM SERUM 3.2 MMOL/L (3.5-5.1); SODIUM LEVEL 140 MMOL/L (136-145); TOTAL PROTEIN 3.9 G/DL (5.7-8.2)
[2025-03-01] MEDS: KCL 10MEQ/100ML SWI (KRUN) 10 MEQ in IV 1 EA IV SCH (08:47)
[2025-03-01 09:39] LABS: MAGNESIUM LEVEL 1.7 MG/DL (1.8-2.4)
[2025-03-01] MEDS: PANTOPRAZOLE 40MG VIAL IV SCH (10:09)
[2025-03-01] MEDS: PERCOCET 5MG/325MG TAB PO PRN (10:09)
[2025-03-01] MEDS: METOPROLOL TART 25 MG TABLET PO ONE (10:09)
[2025-03-01] MEDS: MAG SULF 1GM/100ML (MAG RUN) 1 GM in IV 1 EA IV SCH (14:23)
[2025-03-02] VITALS (9 sets, daily range): BP systolic 123–159; BP diastolic 70–92; TEMP 97.7–99; O2SAT 94–100
[2025-03-02 08:30] LABS: BASO % 0.1 % (0.0-1.0); EOS # 0.1 10^3/uL (0.0-0.5); EOS % 0.8 % (0.0-3.0); HEMATOCRIT 21.1 % (42.0-52.0); HEMOGLOBIN 7.4 g/dl (13.5-17.5); LYMPH # 2.5 10^3/uL (1.5-5.0); LYMPH % 19.4 % (24.0-44.0); MEAN CORPUSCULAR HEMOGLOBIN 32.3 pg (27.0-33.0); MEAN CORPUSCULAR HGB CONC 35.1 g/dl (32.0-36.5); MEAN CORPUSCULAR VOLUME 92.1 fl (80.0-96.0); MONO # 1.1 10^3/uL (0.0-0.8); MONO % 8.6 % (2.0-8.0); NEUTROPHILS # 9.2 10^3/uL (1.5-8.5); NEUTROPHILS % 70.3 % (36.0-66.0); PLATELET COUNT, AUTOMATED 148 10^3/uL (150-450); RED BLOOD COUNT 2.29 10^6/uL (4.30-6.10); WHITE BLOOD COUNT 13.1 10^3/uL (4.0-10.0)
[2025-03-02 08:51] LABS: ALBUMIN 1.5 G/DL (3.2-5.2); ALKALINE PHOSPHATASE 50 U/L (40-129); ALT/SGPT 36 U/L (7.0-40); AST/SGOT 28 U/L (<34); BILIRUBIN,TOTAL 0.5 MG/DL (0.3-1.2); BLOOD UREA NITROGEN 14 MG/DL (9-23); CALCIUM LEVEL 6.9 MG/DL (8.5-10.1); CARBON DIOXIDE LEVEL 25 MMOL/L (20-31); CHLORIDE LEVEL 107 MMOL/L (98-107); CREATININE FOR GFR 0.52 MG/DL (0.70-1.30); GLOMERULAR FILTRATION RATE > 90.0 (>60); GLUCOSE, FASTING 84 MG/DL (60-100); POTASSIUM SERUM 3.3 MMOL/L (3.5-5.1); SODIUM LEVEL 138 MMOL/L (136-145)
[2025-03-02] MEDS: KCL 10MEQ/100ML SWI (KRUN) 10 MEQ in IV 1 EA IV SCH (09:19)
[2025-03-02] MEDS: POTASSIUM CHLORIDE 10MEQ SR TABLET PO STA (09:19)
[2025-03-02 18:21] LABS: HEMATOCRIT 22.6 % (42.0-52.0); HEMOGLOBIN 7.9 g/dl (13.5-17.5)
[2025-03-02] MEDS: chlordiazePOXIDE 25 MG CAP PO SCH (21:14)
[2025-03-03] VITALS (8 sets, daily range): BP systolic 100–129; BP diastolic 55–80; TEMP 97.6–98.8; O2SAT 95–100
[2025-03-03 06:10] LABS: BASO % 0.2 % (0.0-1.0); EOS # 0.1 10^3/uL (0.0-0.5); EOS % 1.1 % (0.0-3.0); LYMPH # 2.2 10^3/uL (1.5-5.0); LYMPH % 20.3 % (24.0-44.0); MEAN CORPUSCULAR HEMOGLOBIN 31.5 pg (27.0-33.0); MEAN CORPUSCULAR HGB CONC 33.8 g/dl (32.0-36.5); MEAN CORPUSCULAR VOLUME 93.2 fl (80.0-96.0); MONO # 1.1 10^3/uL (0.0-0.8); MONO % 10.3 % (2.0-8.0); NEUTROPHILS # 7.4 10^3/uL (1.5-8.5); NEUTROPHILS % 67.1 % (36.0-66.0); PLATELET COUNT, AUTOMATED 186 10^3/uL (150-450); RED BLOOD COUNT 2.22 10^6/uL (4.30-6.10)
[2025-03-03 06:25] LABS: HEMATOCRIT 20.7 % (42.0-52.0)
[2025-03-03 06:31] LABS: BLOOD UREA NITROGEN 10 MG/DL (9-23); CALCIUM LEVEL 7.4 MG/DL (8.5-10.1); CARBON DIOXIDE LEVEL 28 MMOL/L (20-31); CHLORIDE LEVEL 107 MMOL/L (98-107); CREATININE FOR GFR 0.52 MG/DL (0.70-1.30); GLOMERULAR FILTRATION RATE > 90.0 (>60); GLUCOSE, FASTING 87 MG/DL (60-100); MAGNESIUM LEVEL 1.9 MG/DL (1.8-2.4); POTASSIUM SERUM 3.5 MMOL/L (3.5-5.1); SODIUM LEVEL 139 MMOL/L (136-145)
[2025-03-03 13:22] LABS: HEMOGLOBIN 8.2 g/dl (13.5-17.5)
[2025-03-03 20:12] LABS: HEMATOCRIT 22.6 % (42.0-52.0); HEMOGLOBIN 7.8 g/dl (13.5-17.5)
[2025-03-03] MEDS: chlordiazePOXIDE 25 MG CAP PO SCH (21:51)
[2025-03-04 03:28] VITALS: BP 133/81; TEMP 98.1; O2SAT 100
[2025-03-04 06:08] LABS: BASO % 0.3 % (0.0-1.0); EOS # 0.3 10^3/uL (0.0-0.5); EOS % 2.1 % (0.0-3.0); HEMATOCRIT 25.2 % (42.0-52.0); HEMOGLOBIN 8.6 g/dl (13.5-17.5); LYMPH # 2.5 10^3/uL (1.5-5.0); LYMPH % 19.9 % (24.0-44.0); MEAN CORPUSCULAR HEMOGLOBIN 31.6 pg (27.0-33.0); MEAN CORPUSCULAR HGB CONC 34.1 g/dl (32.0-36.5); MEAN CORPUSCULAR VOLUME 92.6 fl (80.0-96.0); MONO # 1.3 10^3/uL (0.0-0.8); MONO % 10.4 % (2.0-8.0); NEUTROPHILS # 8.3 10^3/uL (1.5-8.5); PLATELET COUNT, AUTOMATED 268 10^3/uL (150-450); RED BLOOD COUNT 2.72 10^6/uL (4.30-6.10); WHITE BLOOD COUNT 12.6 10^3/uL (4.0-10.0)
[2025-03-04 06:22] LABS: BLOOD UREA NITROGEN 9 MG/DL (9-23); CALCIUM LEVEL 7.9 MG/DL (8.5-10.1); CARBON DIOXIDE LEVEL 27 MMOL/L (20-31); CHLORIDE LEVEL 110 MMOL/L (98-107); CREATININE FOR GFR 0.49 MG/DL (0.70-1.30); GLOMERULAR FILTRATION RATE > 90.0 (>60); GLUCOSE, FASTING 98 MG/DL (60-100); MAGNESIUM LEVEL 1.9 MG/DL (1.8-2.4); POTASSIUM SERUM 3.4 MMOL/L (3.5-5.1); SODIUM LEVEL 144 MMOL/L (136-145)
[2025-03-04 07:37] VITALS: BP 142/83; TEMP 98.4; O2SAT 100
[2025-03-04] MEDS: MIRALAX *UNIT DOSE* 17GM PACKET PO SCH (08:59)
[2025-03-04] MEDS: DOCUSATE SODIUM 100MG CAPSULE PO SCH (09:00)
[2025-03-04] MEDS: POTASSIUM CHLORIDE 10MEQ SR TABLET PO ONE (09:00)
[2025-03-04] MEDS ORDERED: SENNA 8.6 MG TAB (SENOKOT) PO PRN (11:25)
[2025-03-04 12:09] VITALS: BP 135/89; TEMP 98.3; O2SAT 98
[2025-03-04] MEDS ORDERED: METO1TAB32 PO (13:14)
[2025-03-04] MEDS ORDERED: PROT1TAB2 PO (13:14)
[2025-03-04] MEDS ORDERED: NICO14DI31 TOP (13:17)
[2025-03-04] MEDS ORDERED: DOXY100C3 PO (14:04)
== END 2025-03-04 14:30 | disposition home or self-care (01) | DRG 229 ==
LOC: M ED 15:14 → EDBD 15:14 → CANBEDREQ 19:54 → M ED INP 02-27 03:47 → M ICU 02-27 05:05 → M PCU 03-01 01:57
PROVIDERS: ADMIT Student in an Organized Health Care Education/Training Program; ATTEND Internal Medicine
PROC: 0W3P8ZZ Control Bleeding in Gastrointestinal Tract, Via Natural or Artificial Opening Endoscopic (ICD-10-PCS; 2025-02-27)
PROC: 30233N1 Transfusion of Nonautologous Red Blood Cells into Peripheral Vein, Percutaneous Approach (ICD-10-PCS; 2025-02-27)
PROC: 04L33DZ Occlusion of Hepatic Artery with Intraluminal Device, Percutaneous Approach (ICD-10-PCS; principal; 2025-02-28 15:30)
DX: K26.4 Chronic or unspecified duodenal ulcer with hemorrhage (principal); T88.6XXA Anaphylactic reaction due to adverse effect of correct drug or medicament properly administered, initial encounter; I10 Essential (primary) hypertension; E83.42 Hypomagnesemia; J44.9 Chronic obstructive pulmonary disease, unspecified; J45.909 Unspecified asthma, uncomplicated; F17.200 Nicotine dependence, unspecified, uncomplicated; F10.20 Alcohol dependence, uncomplicated; J32.8 Other chronic sinusitis; T38.995A Adverse effect of other hormone antagonists, initial encounter; K31.7 Polyp of stomach and duodenum; G47.00 Insomnia, unspecified; K29.20 Alcoholic gastritis without bleeding; K04.7 Periapical abscess without sinus; E87.6 Hypokalemia; D62 Acute posthemorrhagic anemia; K31.89 Other diseases of stomach and duodenum; Z79.899 Other long term (current) drug therapy; Z91.018 Allergy to other foods; Z88.6 Allergy status to analgesic agent

== ENCOUNTER → 2025-03-12 | Outpatient (REF) | payer OTHER ==
[~2025-03-12] MED LIST changes: +BENZ-18 PO; +DOXY100C3 PO; +FLOM0.4C39 PO; +HYDR-3719 PO; +LOSA50TA28 PO; +METO1TAB33 PO; +NICO14DI31 TOP; +PROA1AER2 INH; +PROT1TAB2 PO; -TAMS-18 PO; +TREL1AER PO
[2025-03-12 18:43] LABS: BASO # 0.1 10^3/uL (0.0-0.2); BASO % 0.7 % (0.0-1.0); EOS # 0.2 10^3/uL (0.0-0.5); HEMATOCRIT 29.3 % (42.0-52.0); HEMOGLOBIN 9.1 g/dl (13.5-17.5); LYMPH # 1.8 10^3/uL (1.5-5.0); LYMPH % 16.1 % (24.0-44.0); MEAN CORPUSCULAR HEMOGLOBIN 31.3 pg (27.0-33.0); MEAN CORPUSCULAR HGB CONC 31.1 g/dl (32.0-36.5); MEAN CORPUSCULAR VOLUME 100.7 fl (80.0-96.0); MONO % 8.7 % (2.0-8.0); NEUTROPHILS # 7.9 10^3/uL (1.5-8.5); PLATELET COUNT, AUTOMATED 459 10^3/uL (150-450); RED BLOOD COUNT 2.91 10^6/uL (4.30-6.10)
[2025-03-12 18:53] LABS: ALBUMIN 1.8 G/DL (3.2-5.2); ALKALINE PHOSPHATASE 134 U/L (40-129); ALT/SGPT 27 U/L (7.0-40); AST/SGOT 19 U/L (<34); BILIRUBIN,TOTAL 0.2 MG/DL (0.3-1.2); BLOOD UREA NITROGEN < 5 MG/DL (9-23); CALCIUM LEVEL 7.7 MG/DL (8.5-10.1); CARBON DIOXIDE LEVEL 27 MMOL/L (20-31); CHLORIDE LEVEL 105 MMOL/L (98-107); CREATININE FOR GFR 0.41 MG/DL (0.70-1.30); GLOMERULAR FILTRATION RATE > 90.0 (>60); GLUCOSE, FASTING 75 MG/DL (60-100); POTASSIUM SERUM 3.7 MMOL/L (3.5-5.1); SODIUM LEVEL 142 MMOL/L (136-145); TOTAL PROTEIN 5.6 G/DL (5.7-8.2)
== END ==
LOC: M LAB REF 17:25
PROVIDERS: ATTEND Student in an Organized Health Care Education/Training Program
DX: D64.9 Anemia, unspecified (principal); R60.0 Localized edema

== ENCOUNTER → 2025-03-22 | Outpatient (CLI) | payer OTHER ==
[~2025-03-22] MED LIST changes: -FLOM0.4C39 PO; +TAMS-18 PO
[2025-03-22 15:17] LABS: HEMATOCRIT 31.6 % (42.0-52.0); HEMOGLOBIN 10.2 g/dl (13.5-17.5); MEAN CORPUSCULAR HEMOGLOBIN 31.2 pg (27.0-33.0); MEAN CORPUSCULAR HGB CONC 32.3 g/dl (32.0-36.5); MEAN CORPUSCULAR VOLUME 96.6 fl (80.0-96.0); PLATELET COUNT, AUTOMATED 516 10^3/uL (150-450); RED BLOOD COUNT 3.27 10^6/uL (4.30-6.10); WHITE BLOOD COUNT 10.2 10^3/uL (4.0-10.0)
[2025-03-22 15:35] LABS: ALBUMIN 1.8 G/DL (3.2-5.2); ALKALINE PHOSPHATASE 153 U/L (40-129); ALT/SGPT 24 U/L (7.0-40); AST/SGOT 21 U/L (<34); BILIRUBIN,TOTAL 0.3 MG/DL (0.3-1.2); BLOOD UREA NITROGEN 5 MG/DL (9-23); CALCIUM LEVEL 8.1 MG/DL (8.5-10.1); CARBON DIOXIDE LEVEL 28 MMOL/L (20-31); CHLORIDE LEVEL 106 MMOL/L (98-107); GLOMERULAR FILTRATION RATE > 90.0 (>60); GLUCOSE, FASTING 82 MG/DL (60-100); POTASSIUM SERUM 3.5 MMOL/L (3.5-5.1); SODIUM LEVEL 143 MMOL/L (136-145); TOTAL PROTEIN 6.1 G/DL (5.7-8.2)
[2025-03-22 15:50] LABS: HEPATITIS B SURFACE ANTIBODY POSITIVE (POSITIVE)
[2025-03-22 16:00] LABS: HEPATITIS B SURFACE ANTIGEN NEGATIVE (NEGATIVE)
[2025-03-22 16:13] LABS: HIV 1&2 SCREEN NEGATIVE (NEGATIVE)
[2025-03-22 16:21] LABS: HEPATITIS C VIRUS ABY INDEX 0.05 INDEX (<0.8)
== END ==
LOC: M LAB 14:17
PROVIDERS: ATTEND Physician Assistant
DX: L73.2 Hidradenitis suppurativa (principal)

== ENCOUNTER → 2025-03-22 | Outpatient (CLI) | payer OTHER ==
[2025-03-22 15:18] LABS: IONIZED CALCIUM 4.3 MG/DL (4.5-5.3)
[2025-03-22 15:25] LABS: HEMATOCRIT 31.7 % (42.0-52.0); HEMOGLOBIN 10.2 g/dl (13.5-17.5); MEAN CORPUSCULAR HGB CONC 32.2 g/dl (32.0-36.5); MEAN CORPUSCULAR VOLUME 96.4 fl (80.0-96.0); PLATELET COUNT, AUTOMATED 529 10^3/uL (150-450); RED BLOOD COUNT 3.29 10^6/uL (4.30-6.10); WHITE BLOOD COUNT 10.2 10^3/uL (4.0-10.0)
[2025-03-22 15:33] LABS: INR 0.97; PROTHROMBIN TIME 13.2 SECONDS (12.5-14.5)
[2025-03-22 15:45] LABS: CREATININE, URINE 199.4 MG/DL; MALB URINE SIEMENS < 3.0 MG/L
[2025-03-22 15:46] LABS: ALBUMIN 1.8 G/DL (3.2-5.2); ALKALINE PHOSPHATASE 156 U/L (40-129); ALT/SGPT 25 U/L (7.0-40); AST/SGOT 26 U/L (<34); BILIRUBIN,TOTAL 0.2 MG/DL (0.3-1.2); BLOOD UREA NITROGEN 6 MG/DL (9-23); CARBON DIOXIDE LEVEL 29 MMOL/L (20-31); CHLORIDE LEVEL 107 MMOL/L (98-107); CREATININE FOR GFR 0.48 MG/DL (0.70-1.30); GLOMERULAR FILTRATION RATE > 90.0 (>60); GLUCOSE, FASTING 81 MG/DL (60-100); POTASSIUM SERUM 3.7 MMOL/L (3.5-5.1); SODIUM LEVEL 144 MMOL/L (136-145); TOTAL PROTEIN 6.2 G/DL (5.7-8.2)
[2025-03-22 15:55] LABS: ATYPICAL LYMPH 4 % (0-5); BASOPHILS 1 % (0-1); EOSINOPHILS 2 % (0-3); LYMPHOCYTES 23 % (16-44); MONOCYTES 6 % (0-5); NEUTROPHILS 62 % (28-66); PLATELET ESTIMATE INCREASED (NORMAL)
[2025-03-22 15:56] LABS: ANISOCYTOSIS 1+
== END ==
LOC: M LAB 14:14
PROVIDERS: ATTEND Student in an Organized Health Care Education/Training Program
DX: R60.0 Localized edema (principal)

== ENCOUNTER → 2025-03-30 | Outpatient (CLI) | payer OTHER | LOC: M RAD 13:36 | PROVIDERS: ATTEND Nurse Practitioner Family | DX: R74.01 Elevation of levels of liver transaminase levels (principal) ==

== ENCOUNTER → 2025-04-03 | Outpatient (CLI) | payer OTHER ==
[~2025-04-03] MED LIST changes: +CARA1TAB6 PO; +FURO20TA2 PO; +IRON65TA2 PO; +POTA8CAP10 PO
[2025-04-03 15:16] LABS: BASO # 0.1 10^3/uL (0.0-0.2); BASO % 0.4 % (0.0-1.0); EOS # 0.2 10^3/uL (0.0-0.5); EOS % 1.6 % (0.0-3.0); HEMOGLOBIN 11.9 g/dl (13.5-17.5); LYMPH # 1.9 10^3/uL (1.5-5.0); LYMPH % 15.7 % (24.0-44.0); MEAN CORPUSCULAR HEMOGLOBIN 31.1 pg (27.0-33.0); MEAN CORPUSCULAR HGB CONC 32.2 g/dl (32.0-36.5); MEAN CORPUSCULAR VOLUME 96.6 fl (80.0-96.0); MONO # 1.1 10^3/uL (0.0-0.8); MONO % 8.9 % (2.0-8.0); NEUTROPHILS # 8.9 10^3/uL (1.5-8.5); NEUTROPHILS % 73.1 % (36.0-66.0); PLATELET COUNT, AUTOMATED 355 10^3/uL (150-450); RED BLOOD COUNT 3.83 10^6/uL (4.30-6.10); WHITE BLOOD COUNT 12.2 10^3/uL (4.0-10.0)
[2025-04-03 15:40] LABS: ALBUMIN 2.1 G/DL (3.2-5.2); ALKALINE PHOSPHATASE 177 U/L (40-129); ALT/SGPT 28 U/L (7.0-40); AST/SGOT 29 U/L (<34); BILIRUBIN,TOTAL 0.5 MG/DL (0.3-1.2); BLOOD UREA NITROGEN 6 MG/DL (9-23); CALCIUM LEVEL 7.7 MG/DL (8.5-10.1); CARBON DIOXIDE LEVEL 30 MMOL/L (20-31); CHLORIDE LEVEL 105 MMOL/L (98-107); CREATININE FOR GFR 0.47 MG/DL (0.70-1.30); GLOMERULAR FILTRATION RATE > 90.0 (>60); GLUCOSE, FASTING 97 MG/DL (60-100); POTASSIUM SERUM 3.4 MMOL/L (3.5-5.1); SODIUM LEVEL 142 MMOL/L (136-145); TOTAL PROTEIN 6.9 G/DL (5.7-8.2)
== END ==
LOC: M LAB 14:07
PROVIDERS: ATTEND Student in an Organized Health Care Education/Training Program
DX: R53.83 Other fatigue (principal)

== ENCOUNTER → 2025-04-04 | Outpatient (POV) | payer OTHER ==
[~2025-04-04] VITALS: Ht 170.2 cm; Wt 8.3 kg
[2025-04-04 14:35] VITALS: BP 128/80; O2SAT 98
== END ==
LOC: M IRPOV 14:23
PROVIDERS: ATTEND Radiology Diagnostic Radiology
DX: Z48.812 Encounter for surgical aftercare following surgery on the circulatory system (principal); Z88.6 Allergy status to analgesic agent; Z88.8 Allergy status to other drugs, medicaments and biological substances; Z91.018 Allergy to other foods

== ENCOUNTER → 2025-06-06 | Outpatient (REF) | payer OTHER ==
[~2025-06-06] MED LIST changes: +ELIQ5TAB PO; +PANT-23 PO; +POTA-151 PO; +POTA1TAB22 PO; +SLOW142T5 PO
[2025-06-06 15:00] LABS: CALCIUM LEVEL 8.0 MG/DL (8.5-10.1); CARBON DIOXIDE LEVEL 26 MMOL/L (20-31); CHLORIDE LEVEL 103 MMOL/L (98-107); CREATININE FOR GFR 0.49 MG/DL (0.70-1.30); GLOMERULAR FILTRATION RATE > 90.0 (>60); POTASSIUM SERUM 3.6 MMOL/L (3.5-5.1); SODIUM LEVEL 139 MMOL/L (136-145)
== END ==
LOC: M LAB REF 14:10
PROVIDERS: ATTEND Student in an Organized Health Care Education/Training Program
DX: K25.1 Acute gastric ulcer with perforation (principal)

== ENCOUNTER 2025-06-13 06:48 | Day surgery (SDC) | payer OTHER ==
[~2025-06-13] VITALS: Ht 175.3 cm; Wt 85.3 kg
[2025-06-13] MEDS ORDERED: SIMETHICONE 40MG/0.6ML DROPS 30ML As Ordered ONE (06:50)
[2025-06-13] MEDS ORDERED: LIDOCAINE 2% INJ 100 MG/5 ML SYRINGE As Ordered ONE (07:19)
[2025-06-13] MEDS ORDERED: METOPROLOL 5 MG/5 ML VIAL As Ordered ONE (07:30)
[2025-06-13 08:06] VITALS: BP 152/90; O2SAT 98
== END 2025-06-13 08:13 | disposition home or self-care (01) ==
LOC: M OPP 06:48
PROVIDERS: ATTEND Surgery
DX: K31.89 Other diseases of stomach and duodenum (principal); K26.4 Chronic or unspecified duodenal ulcer with hemorrhage; K29.60 Other gastritis without bleeding; Z88.8 Allergy status to other drugs, medicaments and biological substances; Z91.018 Allergy to other foods; Z91.048 Other nonmedicinal substance allergy status; Z79.01 Long term (current) use of anticoagulants; Z79.51 Long term (current) use of inhaled steroids; Z79.899 Other long term (current) drug therapy; J44.9 Chronic obstructive pulmonary disease, unspecified; Z86.711 Personal history of pulmonary embolism; F17.210 Nicotine dependence, cigarettes, uncomplicated
CPT/HCPCS: 43235; J0616

== ENCOUNTER → 2025-06-20 | Outpatient (CLI) | payer OTHER | LOC: M PLAIMG 13:52 | PROVIDERS: ATTEND Student in an Organized Health Care Education/Training Program | DX: R79.89 Other specified abnormal findings of blood chemistry (principal) ==

== ENCOUNTER → 2025-06-27 | Outpatient (CLI) | payer OTHER ==
[2025-06-27 14:31] LABS: CHOLESTEROL LEVEL 110.0 MG/DL (<200); CHOLESTEROL RISK RATIO 3.9 (<5); LDL CHOLESTEROL 61.4 MG/DL (<100); NON-HDL-C 81.8 MG/DL; TRIGLYCERIDES LEVEL 102.0 MG/DL (<150)
== END ==
LOC: M LAB 13:21
PROVIDERS: ATTEND Registered Nurse
DX: I25.84 Coronary atherosclerosis due to calcified coronary lesion (principal); R60.0 Localized edema

== ENCOUNTER → 2025-08-14 | Outpatient (CLI) | payer OTHER ==
[2025-08-14 16:28] LABS: ALT/SGPT 68 U/L (7.0-40); AST/SGOT 79 U/L (<34); CALCIUM LEVEL 7.5 MG/DL (8.5-10.1); CARBON DIOXIDE LEVEL 20 MMOL/L (20-31); CHLORIDE LEVEL 108 MMOL/L (98-107); CREATININE FOR GFR 0.48 MG/DL (0.70-1.30); GLOMERULAR FILTRATION RATE > 90.0 (>60); POTASSIUM SERUM 4.0 MMOL/L (3.5-5.1); SODIUM LEVEL 139 MMOL/L (136-145)
[2025-08-14 18:02] LABS: PLATELET COUNT, AUTOMATED 384 10^3/uL (150-450)
== END ==
LOC: M LAB 14:24
PROVIDERS: ATTEND Physician Assistant
DX: L73.2 Hidradenitis suppurativa (principal)

== ENCOUNTER → 2025-08-14 | Outpatient (CLI) | payer OTHER | LOC: M CARPUL 14:20 | PROVIDERS: ATTEND Registered Nurse | DX: R06.02 Shortness of breath (principal) ==

== ENCOUNTER → 2025-08-15 | Outpatient (POV) | payer OTHER ==
[~2025-08-15] VITALS: Ht 175.3 cm; Wt 84.1 kg
[2025-08-15 15:00] VITALS: BP 142/90; O2SAT 97
== END ==
LOC: M IRPOV 14:50
PROVIDERS: ATTEND Registered Nurse School
DX: Z48.812 Encounter for surgical aftercare following surgery on the circulatory system (principal); I82.411 Acute embolism and thrombosis of right femoral vein; I82.431 Acute embolism and thrombosis of right popliteal vein; I82.441 Acute embolism and thrombosis of right tibial vein; Z79.01 Long term (current) use of anticoagulants; Z88.8 Allergy status to other drugs, medicaments and biological substances; Z91.048 Other nonmedicinal substance allergy status; Z91.018 Allergy to other foods

== ENCOUNTER → 2025-09-21 | Outpatient (CLI) | payer OTHER ==
[~2025-09-21] MED LIST changes: +RA B1TAB2 PO
== END ==
LOC: M RAD 10:33
PROVIDERS: ATTEND Student in an Organized Health Care Education/Training Program
DX: D72.819 Decreased white blood cell count, unspecified (principal); R93.2 Abnormal findings on diagnostic imaging of liver and biliary tract

== ENCOUNTER → 2025-11-07 | Outpatient (REF) | payer OTHER ==
[~2025-11-07] MED LIST changes: +EQL50TAB2 PO; -RA B1TAB2 PO
== END ==
LOC: M SFHCDERM 17:00
PROVIDERS: ATTEND Physician Assistant
DX: L08.9 Local infection of the skin and subcutaneous tissue, unspecified (principal)

== ENCOUNTER → 2025-11-20 | Outpatient (REF) | payer OTHER | LOC: M SFHCDERM 17:17 | PROVIDERS: ATTEND Physician Assistant | DX: L08.9 Local infection of the skin and subcutaneous tissue, unspecified (principal) ==